=== PATIENT | male | born 1990 | race Caucasian/White ===

== ENCOUNTER 2017-05-12 23:13 | Emergency (ER) | payer OTHER ==
[2017-05-12 23:50] VITALS: RESP 16
[2017-05-12 23:55] LABS: Basophils # (A) 0.1 k/uL (0-0.2); Basophils % (A) 1 %; CH 30.5; CHCM 34.9; Eosinophils # (A) 0.1 k/uL (0-0.7); Eosinophils % (A) 1 %; HCT 52.7 % (39.0-53.0); HGB 17.5 gm/dL (13.0-17.5); Luc # (Auto) 0.13; Luc % (Auto) 1; Lymphocytes # (A) 2.1 k/uL (1.0-4.8); Lymphocytes % (A) 22 %; MCH 29.2 pg (25.0-35.0); MCHC 33.2 g/dL (31.0-37.0); MCV 87.9 fL (80.0-100.0); Mean Platelet Volume 7.8; Monocytes # (A) 0.5 k/uL (0-1.0); Monocytes % (A) 5 %; Neutrophils # (A) 6.8 k/uL (1.3-7.7); Neutrophils % (A) 70 %; RBC 5.99 m/uL (4.30-5.90); RDW 14.9 % (11.5-15.5); WBC 9.7 k/uL (3.8-10.6)
[2017-05-13 00:05] LABS: Anion Gap 9 mmol/L; Blood Urea Nitrogen 20 mg/dL (9-20); Calcium 9.8 mg/dL (8.4-10.2); Carbon Dioxide 23 mmol/L (22-30); Chloride 112 mmol/L (98-107); Glucose 88 mg/dL (74-99); Non-African American GFR(MDRD) >60 (>60 ml/min/1.73 sqM); Potassium 3.6 mmol/L (3.5-5.1); Sodium 144 mmol/L (137-145)
--- NOTE | 2017-05-13 00:27 | XR ---
EXAM: XR Chest, 1 View CLINICAL HISTORY: Reason: chest pain TECHNIQUE: Frontal view of the chest. COMPARISON: No relevant prior studies available. FINDINGS: Lungs: Unremarkable. No consolidation. Pleural space: Unremarkable. No pneumothorax. Heart: Unremarkable. No cardiomegaly. Mediastinum: Unremarkable. Bones/joints: Unremarkable. IMPRESSION: Normal chest x-ray.
--- NOTE | 2017-05-13 01:07 | ED ---
Chest Pain HPI - General Chief Complaint: Chest Pain Stated Complaint: chest pain Time Seen by Provider: 05/12/17 23:31 Source: patient, EMS Mode of arrival: EMS Limitations: no limitations - Related Data Home Medications Medication Instructions Recorded Confirmed No Known Home Medications [No 05/12/17 05/12/17 Known Home Medications] Allergies Allergy/AdvReac Type Severity Reaction Status Date / Time No Known Allergies Allergy Verified 05/12/17 23:31 Review of Systems ROS Statement: Those systems with pertinent positive or pertinent negative responses have been documented in the HPI. ROS Other: All systems not noted in ROS Statement are negative. Past Medical History Past Medical History: No Reported History History of Any Multi-Drug Resistant Organisms: None Reported Past Surgical History: No Surgical Hx Reported Past Psychological History: Schizophrenia Smoking Status: Current every day smoker Past Alcohol Use History: Daily Past Drug Use History: Marijuana General Exam Limitations: no limitations Course Vital Signs 05/12/17 05/12/17 23:18 23:49 Temperature 98 F Pulse Rate 90 76 Respiratory 18 16 Rate Blood Pressure 131/96 123/70 O2 Sat by Pulse 95 95 Oximetry Disposition Clinical Impression: Chest pain Disposition: HOME SELF-CARE Condition: Good Instructions: Chest Pain (ED) Referrals: None,Stated [Primary Care Provider] - 1-2 days
[2017-05-13 01:19] VITALS: BP 120/75; PULSE 67; TEMP 98
== END 2017-05-13 01:17 | disposition home or self-care (01) ==
LOC: EC 23:13
DX: R07.9 Chest pain, unspecified (principal); F17.200 Nicotine dependence, unspecified, uncomplicated
CPT/HCPCS: 36415; 71010; 80048; 84484; 85025; 93005; 99285

== ENCOUNTER 2017-05-13 22:51 | Inpatient (IN) | payer MEDICAID, OTHER ==
--- NOTE | 2017-05-13 23:13 | ED ---
Psych HPI - General Chief Complaint: Psychiatric Symptoms Stated Complaint: Mental Health Time Seen by Provider: 05/13/17 23:00 Source: patient Mode of arrival: ambulatory - History of Present Illness Initial Comments: 26 years old male presents with a suicidal ideation ongoing for a few days he does have a history of schizophrenia, depression, bipolar disorder. He do not have any psychiatrist at this point. There are no he has not been taking his medications since November. Neuromuscular he is more called this morning but [facility] Pan skin the ER was negative he denies any street drugs. He denies any headaches no chest pain or shortness of breath he does admits to suicidal ideation - Related Data Home Medications Medication Instructions Recorded Confirmed No Known Home Medications [No 05/12/17 05/12/17 Known Home Medications] Allergies Allergy/AdvReac Type Severity Reaction Status Date / Time No Known Allergies Allergy Verified 05/13/17 22:55 Review of Systems ROS Statement: Those systems with pertinent positive or pertinent negative responses have been documented in the HPI. ROS Other: All systems not noted in ROS Statement are negative. Past Medical History Past Medical History: No Reported History History of Any Multi-Drug Resistant Organisms: None Reported Past Surgical History: No Surgical Hx Reported Past Psychological History: Schizophrenia Smoking Status: Current every day smoker Past Alcohol Use History: Daily Past Drug Use History: Marijuana General Exam - General Exam Comments Initial Comments: General: The patient is awake and alert, in no distress, and does not appear acutely ill. Skin: Skin is warm and dry and no rashes or lesions are noted. Eye: Pupils are equal, round and reactive to light, extra-ocular movements are intact; there is normal conjunctiva bilaterally. Ears, nose, mouth and throat: There are moist mucous membranes and no oral lesions. Neck: The neck is supple, there is no tenderness or JVD. Cardiovascular: There is a regular rate and rhythm. No murmur, rub or gallop is appreciated. Respiratory: To auscultation bilateral, no wheezing no rhonchi no distress respiratory ramirez noticed Gastrointestinal: Soft, non-distended, non-tender abdomen without masses or organomegaly noted. There is no rebound or guarding present. Bowel sounds are unremarkable. Back: There is no tenderness to palpation in the midline. There is no obvious deformity. Musculoskeletal: Normal ROM, no tenderness, There is no pedal edema. There is no calf tenderness or swelling. No cords were appreciated. Neurological: CN II-XII intact, Cranial nerves III through XII are intact. There are no obvious motor or sensory deficits. Coordination appears grossly intact. Speech is normal. Psychiatric: Cooperative, he admits to suicidal ideation and he wants to kill him self. Limitations: no limitations Course Vital Signs 05/13/17 05/13/17 22:52 23:44 Temperature 97.4 F L Pulse Rate 94 Respiratory 18 14 Rate Blood Pressure 135/83 O2 Sat by Pulse 95 Oximetry Disposition Clinical Impression: Suicidal ideation Disposition: ADMITTED IP TO THIS HOSP Condition: Good
[2017-05-14] MEDS ORDERED: MAG HYDROX/AL HYDROX/SIMETH 30 ML CUP PO PRN (02:08)
[2017-05-14] MEDS ORDERED: ZIPRASIDONE 20 MG VIAL IM PRN (02:08)
[2017-05-14] MEDS ORDERED: ACETAMINOPHEN TAB 325 MG TAB PO PRN (02:08)
[2017-05-14] MEDS ORDERED: MAGNESIUM HYDROXIDE 2,400 MG/10 ML CUP PO PRN (02:08)
[2017-05-14 02:33] LABS: Amorphous Sediment,Urine Occasional /hpf; Appearance,Urine Turbid (Clear); Bacteria,Urine Many /hpf; Bilirubin,Urine Negative (Negative); Glucose,Urine (UA) Negative (Negative); Ketones,Urine Negative (Negative); Leukocyte Esterase,Urine Negative (Negative); Mucus,Urine Moderate /hpf; Nitrite,Urine Negative (Negative); PH, Urine 5.5 (5.0-8.0); Particle Count 50369; Protein,Urine Trace (Negative); Specific Gravity,Urine 1.027 (1.001-1.035); UA Billing (MACRO vs. MICRO) MICRO
[2017-05-14 05:38] VITALS: BMI 26.4
--- NOTE | 2017-05-14 08:15 | P.HPMEDMHU ---
History of Present Illness H&P Date: 05/14/17 Chief Complaint: Suicidal ideation This patient is a 26 years old male with significant history of bipolar disorder and schizophrenia presented to the emergency room with suicidal ideation, admitted to the psych unit for inpatient treatment. records from the emergency room indicated the patient complained of chest pain however patient denies having any chest pain, stated he is here because of his depression as well as schizophrenia. Review of Systems Constitutional: Patient reports no fever, no chills, no weight changes, no change in appetite Eyes: Patient reports no double vision, no visual changes ENT: Patient reports no rhinorrhea, no post nasal drip, no sore throat Cardiovascular: Patient reports no chest pain, no edema, no palpitations, no syncope, no orthopnea, no paroxysmal nocturnal dyspnea. Respiratory: Patient reports no dyspnea, no cough, no wheeze Gastrointestinal: Patient reports no nausea, no vomiting, no constipation, no diarrhea Genitourinary: Patient reports no dysuria, no urinary frequency, no hematuria. Musculoskeletal: Patient reports no unusual joint pain, no joint swelling or weakness. Patient reports no muscular pain. Psychiatric: Patient reports no changes in mood, no sleeping problems. Patient reports no changes in memory. Endocrine: Patient reports no thirst, no polyuria, no cold intolerance, no heat intolerance. Neurological: Patient reports no unusual paresthesias, no seizures, no paresis , no paralysis, no facila droop, no headache. Heme/Lymphatic: Patient reports no easy bruising, no bleeding tendency, no lymphadenopathy. Allergic/ Immunologic: Patient reports no recent allergic reactions or immunologic history. Skin: Patient reports no rashes or unusual lesions. Past Medical History Past Medical History: No Reported History History of Any Multi-Drug Resistant Organisms: None Reported Past Surgical History: No Surgical Hx Reported Past Anesthesia/Blood Transfusion Reactions: No Reported Reaction Past Psychological History: Bipolar, Schizophrenia Smoking Status: Current every day smoker Past Alcohol Use History: Daily Past Drug Use History: Marijuana Medications and Allergies Home Medications Medication Instructions Recorded Confirmed Type No Known Home Medications [No 05/12/17 05/12/17 History Known Home Medications] Allergies Allergy/AdvReac Type Severity Reaction Status Date / Time No Known Allergies Allergy Verified 05/13/17 22:55 Physical Exam Vitals: Vital Signs Temp Pulse Pulse Resp BP BP Pulse Ox 05/14/17 05:09 96.8 F L 67 16 108/79 05/13/17 23:44 14 05/13/17 22:52 97.4 F L 94 18 135/83 95 Intake and Output 05/13/17 05/14/17 05/14/17 22:59 06:59 14:59 Other: Weight 75.296 kg 72.2 kg - Constitutional General appearance: no acute distress - EENT Eyes: PERRLA, fundus normal, dentition normal, normal appearance Ears: bilateral: normal - Neck Neck: no lymphadenopathy, no rigidity, no stridor, no thyromegaly Carotids: negative: upstroke normal Thyroid: bilateral: normal size, negative: nodule - Respiratory Respiratory: bilateral: CTA, negative: rales, rhonchi, wheezing - Cardiovascular Rhythm: regular Heart sounds: normal: S1, S2 Abnormal Heart Sounds: no systolic murmur, no diastolic murmur, no S3 Gallop, no S4 Gallop - Gastrointestinal General gastrointestinal: no distended, normal bowel sounds, no rigid, soft, no tenderness - Integumentary Integumentary: no calor, no flushed, no jaundiced, normal, normal turgor - Neurologic Neurologic: CNII-XII intact - Musculoskeletal Musculoskeletal: gait normal, strength equal bilaterally - Psychiatric Psychiatric: A&O x's 3, appropriate affect Cranial Nerve Examination - Cranial Nerves Cranial Nerve II- Optic: Intact Cranial Nerve III- Oculomotor: Intact Cranial Nerve IV- Trochlear: Intact Cranial Nerve V- Trigeminal: Intact Cranial Nerve - Abducens: Intact Cranial Nerve VII- Facial: Intact Cranial Nerve VIII- Auditory: Intact Cranial Nerve IX- Glossopharyngeal: Intact Cranial Nerve X- Vagus: Intact Cranial Nerve XI- Accessory: Intact Cranial Nerve XII- Hypoglossal: Intact Results Labs: Abnormal Lab Results - Last 24 Hours (Table) 05/14/17 05/14/17 Range/Units 00:38 00:38 Urine Protein Trace H (Negative) Amorphous Sediment Occasional H (None) /hpf Urine Bacteria Many H (None) /hpf Urine Mucus Moderate H (None) /hpf Urine Yeast (Budding) Moderate H (None) /hpf U Marijuana (THC) Screen Detected H (NotDetected) Assessment and Plan (1) Suicidal ideation Narrative/Plan: Patient admitted to psych unit and treatment as per psychiatrY Status: Acute (2) Schizo-affective schizophrenia Narrative/Plan: History of schizophrenia Along with bipolar disorder per Patient, treatment as per psychiatry Status: Acute (3) Nicotine addiction Narrative/Plan: I Counseled him extensively regarding smoking cessation for more than 20 minutes I ordered nicotine gum Per His request Status: Acute Time with Patient: Greater than 30
[2017-05-14] MEDS: NICOTINE POLACRILEX 2 MG GUM BUCCAL PRN ×2 (08:40→10:55)
[2017-05-14] MEDS ORDERED: NICOTINE 21MG/24HR PATCH TRANSDERM SCH (09:00)
[2017-05-14 09:24] LABS: Basophils # (A) 0.1 k/uL (0-0.2); Basophils % (A) 1 %; CH 30.2; CHCM 33.5; Eosinophils # (A) 0.2 k/uL (0-0.7); Eosinophils % (A) 2 %; HCT 56.1 % (39.0-53.0); HDW 2.42; HGB 17.8 gm/dL (13.0-17.5); Luc # (Auto) 0.16; Luc % (Auto) 2; Lymphocytes # (A) 2.5 k/uL (1.0-4.8); Lymphocytes % (A) 35 %; MCH 28.7 pg (25.0-35.0); MCHC 31.7 g/dL (31.0-37.0); MCV 90.5 fL (80.0-100.0); Mean Platelet Volume 7.7; Monocytes # (A) 0.4 k/uL (0-1.0); Monocytes % (A) 6 %; Neutrophils # (A) 3.9 k/uL (1.3-7.7); Neutrophils % (A) 54 %; RDW 14.5 % (11.5-15.5); WBC 7.3 k/uL (3.8-10.6); WBC (Perox) 7.21
[2017-05-14 09:57] LABS: ALT 52 U/L (21-72); AST 45 U/L (17-59); Alkaline Phosphatase 77 U/L (38-126); Anion Gap 11 mmol/L; Blood Urea Nitrogen 17 mg/dL (9-20); Calcium 9.7 mg/dL (8.4-10.2); Carbon Dioxide 27 mmol/L (22-30); Chloride 108 mmol/L (98-107); Glucose 65 mg/dL (74-99); Non-African American GFR(MDRD) >60 (>60 ml/min/1.73 sqM); Sodium 146 mmol/L (137-145); Total Bilirubin 0.6 mg/dL (0.2-1.3); Total Protein 6.4 g/dL (6.3-8.2)
[2017-05-14] MEDS ORDERED: LORazepam 1 MG TAB PO PRN (11:02)
[2017-05-14] MEDS: QUEtiapine 100 MG TAB PO SCH (21:58)
[2017-05-15] MEDS: NICOTINE POLACRILEX 2 MG GUM BUCCAL PRN ×3 (09:09→19:59)
--- NOTE | 2017-05-15 10:22 | HP ---
DATE OF SERVICE: 05/14/2017 IDENTIFYING DATA: This patient is a 26-year-old single male who is admitted to the Mental Health Unit through the Emergency Room with a report of psychosis and suicidal ideation and homicidal thoughts. HISTORY OF PRESENT ILLNESS: The patient states that just yesterday he began experiencing command auditory hallucinations directing self-harm and harm to "anybody who bothered me." He did not have a specified individual or group that he wanted to harm. He states that the auditory hallucinations are not present today and that yesterday sometimes he could understand them and other times, they were "jibberish". He reported suicidal thoughts whenever he experience hallucinations. The patient initially refused to speak with me. He refused to come down to an interview room. With a second attempt this morning, he was willing to answer a limited number of questions in his room. He states he has previously been diagnosed with bipolar disorder, major depressive disorder, anxiety disorder and antisocial personality disorder. He endorses a history of manic episodes with decreased need for sleep for almost one week, increased energy, irritability, racing thoughts and increased goal-directed activity. He endorses a history of major depressive episodes. He states he does not frequency experience auditory or visual hallucinations. He is endorsing no recent visual hallucinations. He is endorsing no specific delusions. PAST PSYCHIATRIC HISTORY: He has had several inpatient admissions. It appears in 2013 he was admitted to either [facility] or [facility]. He has also been on inpatient units in [place] as well. Suicide attempts, he reports having 2 where he overdosed more than 3 years ago. He has been on Seroquel in the past and Neurontin. He is asking to be placed back on those medications as he felt they were helpful. He has also been on Abilify and numerous other psychotropics but does not go in any further detail. He [facility] worked with [facility] past but is not actively open with any provider. 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 ALLERGIES: No known drug allergies. CHEMICAL DEPENDENCY HISTORY: He states that lately he has been drinking daily, consuming 48 ounces of beer. He uses marijuana daily. He has a history of using heroine and methamphetamine but reports he has been clean from them for over one year. FAMILY PSYCHIATRIC AND CHEMICAL DEPENDENCY HISTORY: Unknown. SOCIAL HISTORY: The patient is 26 years old. He is not . He has no children. It appears he is homeless and has been staying with friends on their couch. He has a GED. He did not describe which grade he stopped schooling. No history of service. He has 2 brothers, 2 sisters. He will have some contact with his mother via phone. She resides in [place]. He states that he moved around [facility] numerous times while growing up and states "you'll have to ask my mom why." LEGAL HISTORY: The patient has a history of numerous arrests including home invasion, domestic violence, assault on a public safety police or official, obstruction of justice. He has been incarcerated in nursing home in the past. He states that he is done with probation. ABUSE HISTORY: Unknown. MENTAL STATUS EXAM: The patient is a male, he is lying in bed. He is dressed in layers. He has a foul odor. He is balding and is wearing a sutton. Eye contact is intermittent. He is initially very dismissive and seems agitated with my attempts to ask questions. He agitation does decrease somewhat during the course of the interview although it is brief. Speech is spontaneous, fluent. He can be verbose at times. He endorses suicidal thoughts. He endorses recent auditory command hallucinations. He reports aggressive thoughts to "anyone who bothers me." He does not indicate he wants to harm or kill any specific person or group. Insight and judgment limited. He demonstrates no physical aggressiveness, no abnormal involuntary movements observed. Again, he was only partially cooperative. No cognitive testing could be performed. STRENGTHS: Willingness to receive voluntary treatment. WEAKNESSES: Homelessness, lack of income. Presumed limited support. Intellect below average. IMPRESSION: 1. Bipolar I disorder, most recent depressed with reported psychosis, marijuana use disorder, rule out alcohol use disorder, antisocial personality disorder traits. 2. Homelessness, lack of income, presumed lack of social support. 3. Reported variant of muscular dystrophy. PLAN: The patient has been admitted to the Mental Health Unit. He is here voluntarily. He is already reporting a resolution of his psychosis assuming his report is accurate. We will proceed with using Seroquel as a mood stabilizer for the presumed bipolar disorder. We will monitor for any alcohol withdrawal symptoms. Ativan will be available as needed. The patient is encouraged to participate in the milieu but he states today he will not. Social Work will meet with the patient for routine biopsychosocial evaluation. Internal Medicine will meet with the patient for routine history and physical. We will discuss the possibility of inpatient chemical dependency treatment with him during the course of the hospitalization. We will continue to monitor him for safety. SHIVA
--- NOTE | 2017-05-15 12:43 | P.PN ---
Progress Note - Text Interval History: Patient is a 26-year-old male who is admitted for command auditory hallucinations, suicidal ideation. Patient was seen today and he told me that he was only hearing voices because he had been drinking and was high. He reports no current paranoid ideation. Patient reports a long history of difficulties controlling his temper and getting into fights and states he was in juvenile long term from the age of 14 to the age of 22. He would not discuss the reason for his being placed there at the age of 14. Patient was released in October 2011 and placed in a group home house and into transitional living and then living with his mother. He states since 2012 he has attempted suicide twice with overdoses, has been hospitalized at [facility] on 2 occasions as well as being placed in crisis residential unit in [place] and also being hospitalized at [facility]. He states his time at [facility] in [place] was in 2014. He reports that he at [facility] in 2015 and has been there on numerous occasions since 2012. Patient states that he is most recently been using marijuana in binge drinking for the last 2 weeks about a pint 3-4 beers a day. Patient reports that he has not used any other drugs since 2014. Patient states that he's been in care home for 10 months for home invasion as well as a probation violation and was released 2 weeks ago, and he is currently not on probation. He reports getting into fights on numerous occasions in care home. He states he was given Seroquel in care home only but was cheeking it and only used it when he needed to sleep. Patient states he is not feeling suicidal and is not hearing any voices and has no homicidal thoughts. He reports that he is not paranoid. He states that he has an appointment set up at [facility] for an intake tomorrow May 16 because he would like to obtain counseling to cope with the of his father in October of this year and his paternal grandmother who in December of this year. He reports that he will not use the Seroquel when he is discharged because he does not feel that he needs to have any medication. He had recently been living with a friend that he met while he was in rehab but he does not want to continue living there. Mental Status: Appearance/Attitude: Patient was wearing a hoodie with the christine up over his head, is dressed neatly and made good eye contact and was cooperative. Behavior: Patient did not exhibit any psychomotor agitation or retardation. Speech/Language: Patient's speech was spontaneous and of normal volume and rhythm and he was coherent. Thought Process: Patient was goal-directed and there is no evidence of any circumstantial or tangential thought and no loose associations or flight of ideas. Thought Content: Patient denied any current auditory or visual hallucinations and no paranoid or delusional ideation was elicited. Patient stated that the only time he hears voices as when he is drinking or high on drugs. He states that he is not currently paranoid and the only difficulties he has are his anger and getting into fights. He denied any current suicidal or homicidal ideation Suicidal/Homicidal Ideation: Patient denied any current suicidal or homicidal ideation. Sensorium/Cognition: Patient is alert and oriented to person place and time and his memory is grossly intact. Mood/Affect: patient's mood was euthymic and his affect is slightly blunted. Insight/Judgement: patient's insight and judgment are poor. Assessment: Patient was admitted on a voluntary basis and has been taking Seroquel 100 mg at bedtime which he states has helped him sleeping. Patient states that the auditory hallucinations only occur when he is drinking or high on drugs. Patient denied any auditory hallucinations currently and states he is not feeling paranoid. Patient denied having any suicidal or homicidal ideation currently. Patient states that when he is sober he wants to stop using alcohol and smoking marijuana. Patient states he has no place to live as he does not want to return to live with friends that he had been living with. Plan: Patient will continue on Seroquel 100 mg at bedtime as he has been sleeping and is not reporting any further auditory hallucinations and his mood is stable. Will confirm the patient has an intake appointment on May [address] [facility] and consider discharging patient tomorrow with referral to [facility] for outpatient therapy as well as alcohol and substance use treatment.
[2017-05-15 14:58] LABS: Appearance,Urine Clear (Clear); Bilirubin,Urine Negative (Negative); Glucose,Urine (UA) Negative (Negative); Ketones,Urine Negative (Negative); Leukocyte Esterase,Urine Negative (Negative); Nitrite,Urine Negative (Negative); PH, Urine 5.5 (5.0-8.0); Protein,Urine Negative (Negative); Specific Gravity,Urine 1.014 (1.001-1.035); UA Billing (MACRO vs. MICRO) CHEM; Urobilinogen,Urine <2.0 mg/dL (<2.0)
[2017-05-15] MEDS: QUEtiapine 100 MG TAB PO SCH (21:55)
[2017-05-16 07:16] VITALS: BP 123/68; PULSE 52; RESP 16; TEMP 97.7
[2017-05-16] MEDS: NICOTINE POLACRILEX 2 MG GUM BUCCAL PRN (09:26)
--- NOTE | 2017-05-16 11:37 | P.DS ---
Providers Date of admission: 05/14/17 01:05 Expected date of discharge: 05/16/17 Attending physician: Carmen Saenz MD Consults: 05/14/17 02:08 Consult Physician Routine Consulting Provider: Joselo Hartmann Consult Reason/Comments: H&P, with medical follow up Do you want consulting provider notified?: Already Contacted Primary care physician: Stated None Hospital Course: Discharge Diagnoses: Substance induced bipolar and related disorder, alcohol use disorder, marijuana use disorder, antisocial personality disorder Reason for Admission: Patient is a 26-year-old male who presented to the emergency room reporting auditory hallucinations that were command telling him to harm himself and anybody who bothered him. Patient has a history of several inpatient admissions and several suicide attempts in the past. Patient reports that he had just been released from [facility] ago, he states he began using marijuana and began to binge drinking. Patient states that when he drinks and uses drugs and his high he has suicidal ideation and auditory hallucinations. Patient had been taking Seroquel and Neurontin in the past and reported that these were helpful to him. Patient had been living with friends after his release from [facility]. Hospital Course: Patient was admitted on a voluntary basis, routine laboratory studies were ordered, patient was placed on routine observation, medical consult was obtained, patient was ordered group and activity therapy. Patient was restarted on his Seroquel at 100 mg at bedtime. Patient was also observed for any evidence of withdrawal from alcohol. Patient did attend some groups and activities. Patient was begun on Seroquel 100 mg and he then reported no further suicidal ideation, auditory hallucinations or thoughts to hurt anyone else. Patient reported that he was sleeping well and eating well. He stated he was not feeling depressed and reported that his symptoms were result of his using alcohol and drugs and getting high. Patient remained guarded about informing staff about where he was returning to live or with whom he was living. Patient stated he had set up an appointment for an intake at [facility] prior to his admission and he wished to keep that. Patient reported he was not irritable, reported no psychotic symptomatology and no suicidal or homicidal ideation and was ready for discharge. Patient states he was sleeping and eating well. Discharge Mental Status:Appearance/Attitude: Patient was appropriately dressed and groomed, made good eye contact and was superficially cooperative. Behavior: Patient did not display any psychomotor agitation or retardation. Speech/Language: Patient's speech was spontaneous and of normal volume and rhythm and he was coherent. Thought Process: Patient was goal-directed, no evidence of circumstantial or tangential thought and no flight of ideas or loose associations were elicited. Thought Content: Patient denied any auditory or visual hallucinations and no delusions or paranoid ideation were elicited. Patient reported that he was sleeping and eating well and had not been feeling as irritable as he was prior to admission. Patient states that the auditory hallucinations and suicidal thoughts were due to his using alcohol and drugs prior to his admission. Patient was not forthcoming in stating where or who he was going to live with post discharge. Suicidal/Homicidal Ideation: Patient denied any current suicidal or homicidal ideation. Sensorium/Cognition: Patient was alert and oriented to person, place, and time and his memory is grossly intact. Mood/Affect: Patient's mood was stable and his affect was appropriate Insight/Judgement: Patient's insight and judgment are fair. Laboratory Last Values WBC 7.3 k/uL (3.8-10.6) 05/14/17 08:45 RBC 6.20 m/uL (4.30-5.90) H 05/14/17 08:45 Hgb 17.8 gm/dL (13.0-17.5) H 05/14/17 08:45 Hct 56.1 % (39.0-53.0) H 05/14/17 08:45 MCV 90.5 fL (80.0-100.0) 05/14/17 08:45 MCH 28.7 pg (25.0-35.0) 05/14/17 08:45 MCHC 31.7 g/dL (31.0-37.0) 05/14/17 08:45 RDW 14.5 % (11.5-15.5) 05/14/17 08:45 Plt Count 287 k/uL (150-450) 05/14/17 08:45 Neutrophils % 54 % 05/14/17 08:45 Lymphocytes % 35 % 05/14/17 08:45 Monocytes % 6 % 05/14/17 08:45 Eosinophils % 2 % 05/14/17 08:45 Basophils % 1 % 05/14/17 08:45 Neutrophils # 3.9 k/uL (1.3-7.7) 05/14/17 08:45 Lymphocytes # 2.5 k/uL (1.0-4.8) 05/14/17 08:45 Monocytes # 0.4 k/uL (0-1.0) 05/14/17 08:45 Eosinophils # 0.2 k/uL (0-0.7) 05/14/17 08:45 Basophils # 0.1 k/uL (0-0.2) 05/14/17 08:45 Sodium 146 mmol/L (137-145) H 05/14/17 08:45 Potassium 4.0 mmol/L (3.5-5.1) 05/14/17 08:45 Chloride 108 mmol/L (98-107) H 05/14/17 08:45 Carbon Dioxide 27 mmol/L (22-30) 05/14/17 08:45 Anion Gap 11 mmol/L 05/14/17 08:45 BUN 17 mg/dL (9-20) 05/14/17 08:45 Creatinine 0.95 mg/dL (0.66-1.25) 05/14/17 08:45 Est GFR (MDRD) Af Amer >60 (>60 ml/min/1.73 sqM) 05/14/17 08:45 Est GFR (MDRD) Non-Af >60 (>60 ml/min/1.73 sqM) 05/14/17 08:45 Glucose 65 mg/dL (74-99) L 05/14/17 08:45 Calcium 9.7 mg/dL (8.4-10.2) 05/14/17 08:45 Total Bilirubin 0.6 mg/dL (0.2-1.3) 05/14/17 08:45 AST 45 U/L (17-59) 05/14/17 08:45 ALT 52 U/L (21-72) 05/14/17 08:45 Alkaline Phosphatase 77 U/L (38-126) 05/14/17 08:45 Total Protein 6.4 g/dL (6.3-8.2) 05/14/17 08:45 Albumin 4.2 g/dL (3.5-5.0) 05/14/17 08:45 TSH 1.770 mIU/L (0.465-4.680) 05/14/17 08:45 Urine Color Yellow 05/15/17 14:51 Urine Appearance Clear (Clear) 05/15/17 14:51 Urine pH 5.5 (5.0-8.0) 05/15/17 14:51 Ur Specific [place] 1.014 (1.001-1.035) 05/15/17 14:51 Urine Protein Negative (Negative) 05/15/17 14:51 Urine Glucose (UA) Negative (Negative) 05/15/17 14:51 Urine Ketones Negative (Negative) 05/15/17 14:51 Urine Blood Negative (Negative) 05/15/17 14:51 Urine Nitrite Negative (Negative) 05/15/17 14:51 Urine Bilirubin Negative (Negative) 05/15/17 14:51 Urine Urobilinogen <2.0 mg/dL (<2.0) 05/15/17 14:51 Ur Leukocyte Esterase Negative (Negative) 05/15/17 14:51 Amorphous Sediment Occasional /hpf (None) H 05/14/17 00:38 Urine Bacteria Many /hpf (None) H 05/14/17 00:38 Urine Mucus Moderate /hpf (None) H 05/14/17 00:38 Urine Yeast (Budding) Moderate /hpf (None) H 05/14/17 00:38 Urine Opiates Screen Not Detected (NotDetected) 05/14/17 00:38 Ur Oxycodone Screen Not Detected (NotDetected) 05/14/17 00:38 Urine Methadone Screen Not Detected (NotDetected) 05/14/17 00:38 Ur Propoxyphene Screen Not Detected (NotDetected) 05/14/17 00:38 Ur Barbiturates Screen Not Detected (NotDetected) 05/14/17 00:38 U Tricyclic Antidepress Not Detected (NotDetected) 05/14/17 00:38 Ur Phencyclidine Scrn Not Detected (NotDetected) 05/14/17 00:38 Ur Amphetamines Screen Not Detected (NotDetected) 05/14/17 00:38 U Methamphetamines Scrn Not Detected (NotDetected) 05/14/17 00:38 U Benzodiazepines Scrn Not Detected (NotDetected) 05/14/17 00:38 Urine Cocaine Screen Not Detected (NotDetected) 05/14/17 00:38 U Marijuana (THC) Screen Detected (NotDetected) H 05/14/17 00:38 Risk Assessment: Patient's risk is is moderate for self-harm/violence towards others due to his history of prior aggression, alcohol and substance use Discharge Plan: Patient will be discharged and will keep his 2 PM appointment at [facility] for an intake today. Patient will continue on Seroquel 100 mg at bedtime and was given a prescription for this however patient states that he will use it when he feels he needs it. Patient was encouraged to remain sober and avoid any alcohol or drugs. Patient continued to refuse to tell us with whom he was going to go live and where he was going to go live stating he did not want anyone else involved with his treatment. Patient Condition at Discharge: Stable Plan - Discharge Summary New Discharge Prescriptions: New QUEtiapine [SEROquel] 100 mg PO HS #14 tab Discharge Medication List QUEtiapine [SEROquel] 100 mg PO HS #14 tab 05/16/17 [Rx] Follow up Appointment(s)/Referral(s): [facility] [Outside] - 1 Week None,Stated [Primary Care Provider] - 05/16/17 2:00 pm ([facility]) Discharge Disposition: HOME SELF-CARE
== END 2017-05-16 14:08 | disposition home or self-care (01) | DRG 885 ==
LOC: EC 22:51 → 3MHU 05-14 01:05
PROVIDERS: ADMIT Psychiatry & Neurology Psychiatry; ATTEND Psychiatry & Neurology Psychiatry
DX: F31.9 Bipolar disorder, unspecified (principal); G71.0 Muscular dystrophy; R45.851 Suicidal ideations; F20.9 Schizophrenia, unspecified; F17.200 Nicotine dependence, unspecified, uncomplicated; F12.90 Cannabis use, unspecified, uncomplicated; F60.2 Antisocial personality disorder; Z59.0 Homelessness; Z79.899 Other long term (current) drug therapy; Z59.6 Low income; Z91.5 Personal history of self-harm; F10.10 Alcohol abuse, uncomplicated
CPT/HCPCS: 80053; 80306; 81001; 81003; 82075; 84443; 85025; 87086; 87491; 87591

== ENCOUNTER 2018-08-27 13:53 | Emergency (ER) | payer OTHER ==
[2018-08-27 14:08] VITALS: BP 114/82; PULSE 70; RESP 18; TEMP 98.4
--- NOTE | 2018-08-27 15:47 | ED ---
General Adult HPI - General Chief complaint: Nausea/Vomiting/Diarrhea Stated complaint: Jaw pain/cold Time Seen by Provider: 08/27/18 15:35 Source: patient, RN notes reviewed Mode of arrival: ambulatory Limitations: no limitations - History of Present Illness Initial comments: Patient's a 28-year-old male presents to the emergency room today with a chief complaint of sinus congestion. Patient admits that over the last 3 days she's had increased sinus drainage and congestion. She also admits that he's had some nausea vomiting. He states this was yesterday and has not had any episodes today. Does admit that he had a few episodes of diarrhea. States he believes it may have been the chicken that he cooked. Patient does admit that the symptoms of nausea vomiting diarrhea have improved. He states he was unable to work last night. States work on him to have a work note and his his reason for coming here to the emergency room today. He does note he still having sinus congestion. Patient denies any other complaints. Patient denies any recent fever, chills, shortness of breath, chest pain, back pain, abdominal pain, numbness or tingling, dysuria or hematuria, constipation, headaches or visual changes, or any other complaints. - Related Data Previous Rx's Medication Instructions Recorded QUEtiapine [SEROquel] 100 mg PO HS #14 tab 05/16/17 Fluticasone Propionate [Flonase 1 - 2 spray EA NOSTRIL DAILY 5 08/27/18 Allergy Relief] Days ml Allergies Allergy/AdvReac Type Severity Reaction Status Date / Time No Known Allergies Allergy Verified 08/27/18 14:06 Review of Systems ROS Statement: Those systems with pertinent positive or pertinent negative responses have been documented in the HPI. ROS Other: All systems not noted in ROS Statement are negative. Past Medical History Past Medical History: No Reported History History of Any Multi-Drug Resistant Organisms: None Reported Past Surgical History: No Surgical Hx Reported Past Anesthesia/Blood Transfusion Reactions: No Reported Reaction Past Psychological History: Bipolar, Schizophrenia Smoking Status: Current every day smoker Past Alcohol Use History: Daily Past Drug Use History: Marijuana General Exam - General Exam Comments Initial Comments: General: The patient is awake and alert, in no distress, and does not appear acutely ill. Eye: Pupils are equal, round and reactive to light, extra-ocular movements are intact. No nystagmus. There is normal conjunctiva bilaterally. No signs of icterus. Ears, nose, mouth and throat: There are moist mucous membranes and no oral lesions. She does have tenderness over the maxillary sinus Neck: The neck is supple, there is no tenderness or JVD. Cardiovascular: There is a regular rate and rhythm. No murmur, rub or gallop is appreciated. Respiratory: Lungs are clear to auscultation, respirations are non-labored, breath sounds are equal. No wheezes, stridor, rales, or rhonchi. Gastrointestinal: Soft, non-distended, non-tender abdomen without masses or organomegaly noted. There is no rebound or guarding present. No CVA tenderness. Musculoskeletal: Normal ROM, no tenderness. Neurological: A&O x 3. CN II-XII intact, There are no obvious motor or sensory deficits. Coordination appears grossly intact. Speech is normal. Skin: Skin is warm and dry and no rashes or lesions are noted. Psychiatric: Cooperative, appropriate mood & affect, normal judgment. Limitations: no limitations Course Vital Signs 08/27/18 14:04 Temperature 98.4 F Pulse Rate 70 Respiratory 18 Rate Blood Pressure 114/82 O2 Sat by Pulse 100 Oximetry Medical Decision Making - Medical Decision Making Patient states his reason for coming here to the emergency room because he needed a work note. Patient will be treated for sinus infection with Flonase and ibuprofen. Patient does admit that his symptoms of nausea vomiting and diarrhea have improved has not had any episodes today and believes this is from chicken he cooked at home. Disposition Clinical Impression: Acute sinusitis, Nausea, vomiting and diarrhea Disposition: HOME SELF-CARE Condition: Good Instructions: Acute Nausea and Vomiting (ED) Additional Instructions: Please use medication as discussed. Please follow-up with family doctor in the next 2 days of symptoms have not improved. Please return to emergency room if the symptoms increase or worsen or for any other concerns. Prescriptions: Fluticasone Propionate [Flonase Allergy Relief] 1 - 2 spray EA NOSTRIL DAILY 5 Days ml Is patient prescribed a controlled substance at d/c from ED?: No Referrals: None,Stated [Primary Care Provider] - 1-2 days Time of Disposition: 15:47
== END 2018-08-27 16:04 | disposition home or self-care (01) ==
LOC: EC 13:53
DX: J01.90 Acute sinusitis, unspecified (principal); R11.2 Nausea with vomiting, unspecified; R19.7 Diarrhea, unspecified; F17.200 Nicotine dependence, unspecified, uncomplicated
CPT/HCPCS: 99283

== ENCOUNTER 2020-01-18 21:58 | Inpatient (IN) | payer MEDICAID, OTHER ==
--- NOTE | 2020-01-18 22:55 | ED ---
Psych HPI - General Source: patient Mode of arrival: EMS <Suzette Salgado - Last Filed: 01/18/20 22:45> <Elda Nicholson - Last Filed: 01/20/20 23:44> - General Chief Complaint: Psychiatric Symptoms Stated Complaint: Mental Health Time Seen by Provider: 01/18/20 21:59 - History of Present Illness Initial Comments: 29-year-old male patient presents to the emergency department today for evaluation of hallucinations, nightmares, and suicidal ideation. Patient states symptoms have been increasing over the last 2-3 days. States he is out of his medication due to the recent COVID-19 pandemic. Patient denies any active plan to take his life but has had thoughts and feels like he would be better off . He denies any alcohol use. States he does use marijuana. Patient denies any recent rash, fever, chills, cough, shortness of breath, chest pain, abdominal pain, nausea, vomiting, diarrhea, constipation, back pain, numbness, tingling, dizziness, weakness, hematuria, dysuria, urinary urgency, urinary frequency, headache, visual changes, or any other complaints. (Suzette Salgado) - Related Data Home Medications Medication Instructions Recorded Confirmed Gabapentin [Neurontin] 400 mg PO TID 08/27/18 01/18/20 Previous Rx's Medication Instructions Recorded Fluticasone Propionate [Flonase 1 - 2 spray EA NOSTRIL DAILY 5 08/27/18 Allergy Relief] Days ml Allergies Allergy/AdvReac Type Severity Reaction Status Date / Time No Known Allergies Allergy Verified 01/18/20 23:54 Review of Systems ROS Other: All systems not noted in ROS Statement are negative. <Suzette Salgado - Last Filed: 01/18/20 22:45> ROS Other: All systems not noted in ROS Statement are negative. <Elda Nicholson - Last Filed: 01/20/20 23:44> ROS Statement: Those systems with pertinent positive or pertinent negative responses have been documented in the HPI. Past Medical History Past Medical History: No Reported History History of Any Multi-Drug Resistant Organisms: None Reported Past Surgical History: No Surgical Hx Reported Past Anesthesia/Blood Transfusion Reactions: No Reported Reaction Past Psychological History: Bipolar, Schizophrenia Smoking Status: Current every day smoker Past Alcohol Use History: Heavy Past Drug Use History: Marijuana <Suzette Salgado - Last Filed: 01/18/20 22:45> General Exam General appearance: alert, in no apparent distress, other (Physical well- developed, well-nourished adult male patient in no acute distress. Vital signs upon presentation are temperature 97.5F, pulse 102, respirations 18, blood pressure 134/92, pulse ox 96% on room air.) ENT exam: Present: normal exam, normal oropharynx, mucous membranes moist Respiratory exam: Present: normal lung sounds bilaterally. Absent: respiratory distress, wheezes, rales, rhonchi, stridor Cardiovascular Exam: Present: regular rate, normal rhythm, normal heart sounds. Absent: systolic murmur, diastolic murmur, rubs, gallop, clicks GI/Abdominal exam: Present: soft, normal bowel sounds. Absent: distended, tenderness, guarding, rebound, rigid Neurological exam: Present: alert, oriented X3, CN II-XII intact Psychiatric exam: Present: normal affect, normal mood Skin exam: Present: warm, dry, intact, normal color. Absent: rash <Suzette Salgado - Last Filed: 01/18/20 22:45> Course Vital Signs 01/18/20 22:27 Temperature 97.5 F L Pulse Rate 102 H Respiratory 18 Rate Blood Pressure 134/92 O2 Sat by Pulse 96 Oximetry Medical Decision Making <Suzette Salgado - Last Filed: 01/18/20 22:45> - Lab Data Result diagrams: 01/19/20 06:50 01/19/20 06:50 <Elda Nicholson - Last Filed: 01/20/20 23:44> - Medical Decision Making 29-year-old male patient presented to the emergency department today for evaluation of suicidal ideation, hallucinations, night terrors. Patient was seen and evaluated by the emergency psychiatric nurse and will be transferred to the mental health unit for further evaluation. (Suzette Salgado) I was available for consultation in the emergency department. The history and physical exam were done by the midlevel provider. I was consulted for this patients care. I reviewed the case with the midlevel provider and based on their presentation of the patient, I agree with the assessment, medical decision making and plan of care as documented. Chart was dictated using [employer] dictation software. Attempts were made to correct any dictation errors however some typographical errors may persist. Patient was seen during a national state of emergency due to the Covid-19 pandemic. (Elda Nicholson) Disposition - Out of Hospital Transfer - Req. Specs Out of Hospital Transfer - Requested Specifics: [facility] <Suzette Salgado - Last Filed: 01/18/20 22:45> <Elda Nicholson - Last Filed: 01/20/20 23:44> Clinical Impression: Hallucinations, Suicidal ideation Disposition: TRANSFER TO PSYCH HOSP/UNIT Condition: Serious
[2020-01-18] MEDS ORDERED: LORazepam 1 MG TAB PO PRN (22:59)
[2020-01-18] MEDS ORDERED: MAG HYDROX/AL HYDROX/SIMETH 30 ML CUP PO PRN (22:59)
[2020-01-18] MEDS ORDERED: MAGNESIUM HYDROXIDE 2,400 MG/10 ML CUP PO PRN (22:59)
[2020-01-18] MEDS ORDERED: ZIPRASIDONE 20 MG VIAL IM PRN (22:59)
--- NOTE | 2020-01-19 00:55 | P.MDCNMH ---
History of Present Illness H&P Date: 01/18/20 Chief Complaint: medical evaluation 29 year old male with bipolar disorder, manic depression. patient comes in due to auditory hallucinations. he admits to not taking his medications, due to losing his insurance and could not get his medications refilled. he started hearing voices, which is bothering him , but denies any homicidal or suicidal ideation however, he feels that he is better off . otherwise he denies any medical concerns at this time. denies any fever, chills, chest pain, SOB, abd pain , nausea vomiting, diarrhea, GI bleeding, or focal neuro deficits. Review of Systems Pertinent positives as noted in HPI. All other systems were reviewed and are negative Past Medical History Past Medical History: No Reported History History of Any Multi-Drug Resistant Organisms: None Reported Past Surgical History: No Surgical Hx Reported Past Anesthesia/Blood Transfusion Reactions: No Reported Reaction Past Psychological History: Bipolar, Schizoaffective Disorder Smoking Status: Current every day smoker Past Alcohol Use History: Heavy Past Drug Use History: Marijuana - Past Family History family Family Medical History: No Reported History Medications and Allergies Home Medications Medication Instructions Recorded Confirmed Type Fluticasone Propionate [Flonase 1 - 2 spray EA NOSTRIL DAILY 5 08/27/18 Rx Allergy Relief] Days ml Gabapentin [Neurontin] 400 mg PO TID 08/27/18 01/18/20 History Allergies Allergy/AdvReac Type Severity Reaction Status Date / Time No Known Allergies Allergy Verified 01/18/20 23:54 Physical Exam Vitals: Vital Signs Temp Pulse Pulse Resp BP BP Pulse Ox 01/18/20 23:27 98.0 F 90 18 122/82 94 L 01/18/20 22:27 97.5 F L 102 H 18 134/92 96 Intake and Output 01/18/20 01/18/20 01/19/20 14:59 22:59 06:59 Other: Weight 90.718 kg 81.873 kg Constitutional: No acute distress, conversant, pleasant Eyes: Anicteric sclerae, moist conjunctiva, no lid-lag Pupils equal round reactive to light ENMT: NC/AT Oropharynx clear, no erythema, or exudates Neck: Supple, FROM, no masses, or JVD No carotid bruits No thyromegaly Lungs: Clear to auscultation Clear to percussion Normal respiratory effort, no accessory muscle use Cardiovascular: Heart regular in rate and rhythm, No murmurs, gallops, or rubs No peripheral edema Abdominal: Soft Nontender, no guarding, rebound or rigidity Abdomen moving with respiration Normoactive bowel sounds No hepatomegaly, No splenomegaly No palpable mass No abdominal wall hernia noted Skin: Normal temperature, tone, texture, turgor No induration No subcutaneous nodules No rash, lesions No ulcers Extremities: No digital cyanosis No clubbing Pedal pulses intact and symmetrical Radial pulses intact and symmetrical No calf tenderness Psychiatric: Alert and oriented to person, place and time depressed affect fair judgment Neuro Muscles Strength 5/5 in all 4 extremities Sensation to light touch grossly present throughout Cranial nerves II-XII grossly intact No focal sensory deficits Lymphatics: no palpable cervical or supraclavicular , or inguinal lymph nodes Cranial Nerve Examination - Cranial Nerves Cranial Nerve II- Optic: Intact Cranial Nerve III- Oculomotor: Intact Cranial Nerve IV- Trochlear: Intact Cranial Nerve V- Trigeminal: Intact Cranial Nerve - Abducens: Intact Cranial Nerve VII- Facial: Intact Cranial Nerve VIII- Auditory: Intact Cranial Nerve IX- Glossopharyngeal: Intact Cranial Nerve X- Vagus: Intact Cranial Nerve XI- Accessory: Intact Cranial Nerve XII- Hypoglossal: Intact Assessment and Plan Assessment: 29 year old male with bipolar disorder, manic depression , borderline personality , denies any medical history otherwise. medicine consulted for medical evaluation auditory hallucinations bipolar disorder, borderline personality management per psych tobacco smoking nicotine replacement therapy polysubstance abuse counseled to quit drug of abuse low risk for DVT patient ambulatory Thank you for allowing us to participate in the care of this patient. We will follow peripherally. Do not hesitate to contact us with questions. Someone can be reached from the [facility] hospitalist group at all hours of the day at [phone].
[2020-01-19 07:05] LABS: Basophils # (A) 0.1 k/uL (0-0.2); Basophils % (A) 1 %; Eosinophils # (A) 0.2 k/uL (0-0.7); Eosinophils % (A) 2 %; HCT 51.9 % (39.0-53.0); HGB 16.8 gm/dL (13.0-17.5); Lymphocytes # (A) 2.7 k/uL (1.0-4.8); Lymphocytes % (A) 30 %; MCH 28.6 pg (25.0-35.0); MCHC 32.4 g/dL (31.0-37.0); MCV 88.6 fL (80.0-100.0); Monocytes # (A) 0.4 k/uL (0-1.0); Monocytes % (A) 5 %; Neutrophils # (A) 5.4 k/uL (1.3-7.7); Neutrophils % (A) 61 %; Platelet Count 239 k/uL (150-450); RBC 5.86 m/uL (4.30-5.90); RDW 13.2 % (11.5-15.5); WBC 8.9 k/uL (3.8-10.6)
[2020-01-19 07:16] LABS: ALT 67 U/L (4-49); AST 48 U/L (17-59); African American GFR (CKD) >90 (>60 ml/min/1.73 sqM); Albumin 4.2 g/dL (3.5-5.0); Alkaline Phosphatase 82 U/L (38-126); Anion Gap 6 mmol/L; Blood Urea Nitrogen 21 mg/dL (9-20); Calcium 9.8 mg/dL (8.4-10.2); Carbon Dioxide 28 mmol/L (22-30); Chloride 108 mmol/L (98-107); Cholesterol 200 mg/dL (<200); Glucose 94 mg/dL (74-99); HDL Cholesterol 33 mg/dL (40-60); LDL Cholesterol,Calculated 116 mg/dL (0-99); Non-African American GFR(CKD) >90 (>60 ml/min/1.73 sqM); Potassium 4.9 mmol/L (3.5-5.1); Sodium 142 mmol/L (137-145); Total Bilirubin 0.8 mg/dL (0.2-1.3); Total Protein 6.7 g/dL (6.3-8.2); Triglycerides 256 mg/dL (<150)
[2020-01-19] MEDS ORDERED: NICOTINE 14MG/24HR PATCH TRANSDERM SCH (09:00)
[2020-01-19] MEDS ORDERED: INFLUENZA VACCINE (6 MOS+) 60 MCG/0.5 ML SYRINGE IM ONE (09:00)
[2020-01-19] MEDS ORDERED: PNEUMOCOCCAL VACC-PNEUMOVAX 23 25 MCG/0.5 ML VIAL IM ONE (09:00)
[2020-01-19] MEDS: GABAPENTIN 400 MG CAP PO SCH ×3 (09:54→20:42)
[2020-01-19 10:37] VITALS: BMI 29.1
--- NOTE | 2020-01-19 15:54 | HP ---
HISTORY AND PHYSICAL IDENTIFYING DATA: The patient is a 29-year-old male. He lives with his girlfriend. He was referred to the ED for further evaluation. CHIEF COMPLAINT: The patient was having increasing problems with hallucinations, night terrors and suicidal thinking over the last several days. He says he has been depressed for about a week. HISTORY OF PRESENTING ILLNESS: The patient was the primary source of information. He did not provide many details. He notes a psychiatric hospitalization at that this facility 05/14/2017. At that time, he was experiencing command auditory hallucinations, directing self-harm and "harm to anybody who bothered me." I refer the reader to Dr. Lindquist's admission note of 05/14/2017 for details. As such, Dr. Lindquist indicated a prior diagnosis of bipolar disorder, major depression, anxiety disorder, and antisocial personality disorder. He also stated the patient had manic episodes with decreased need for sleep, increased energy, racing thoughts, and other manic symptoms. At that time, no psychotic symptoms were identified. When I reviewed issues with the patient, he was not able to identify any clear precipitants that may be setting off depression or his other issues. He was vague about what actually he was experiencing in regard to auditory hallucinations. He acknowledged having paranoid feelings, though he again did not provide details on that. He notes that sleep has been up and down. Appetite is fair. He has a loss of motivation energy and interest. He was unclear about whether he has experienced any posttraumatic issues. He does not clearly identify panic symptoms. He acknowledges some substance abuse issues, namely marijuana. Noted that when he was discharged from this facility on 05/16/2017, discharge medication included Seroquel 100 mg at bedtime as his only psychotropic medication. The patient said that he has had followup with [facility] and does have regular contacts. He said that through mental health, he was taken off Seroquel and started on Neurontin 400 mg 3 times a day. He notes that a few months ago he lost his health insurance and was not able to continue with Neurontin. He has made efforts to reconnect with [facility] because the virus situation. He has not been able to get restarted on medication. He believes that Neurontin has been a successful medication for him in terms of his psychiatric complaints. He is admitted for further evaluation. SUBSTANCE USE HISTORY: Patient states that he smokes marijuana on a regular basis and has the intention of continuing to use marijuana. He says he occasionally uses alcohol, though not in an abusive way. He notes that he did use some cocaine Th night, though does not engage in cocaine use on any regular basis. FAMILY / SOCIAL HISTORY: The patient lives with his girlfriend, though he states that at the present moment, they have had some disagreements. He did not provide any details. He has a GED. 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 He has been incarcerated in the past. He says that currently he has been working at a local [employer], though has been laid off due to current virus situation. PHYSICAL EXAM: As per medical consultation. MENTAL STATUS EXAM: Patient gave fair eye contact. He was somewhat restless. He answered questions with brief responses. His thoughts were clear. He did not say a lot. He was not spontaneous or interactive. His affect was blunted. His mood reserved. He seems somewhat down and moderately distressed. It was difficult to assess for thought disorder, though the patient did say that he is experiencing hallucinations, though he did not provide details. He did not make clear any thoughts of harm to self or others. On cognitive exam, he was oriented x3 and alert. He did not make an effort to answer formal cognitive questions though appeared to have intact recent and remote memory, attention and focus. Insight was uncertain. Judgment uncertain fund of knowledge average. DIAGNOSES: 1. Bipolar 1 disorder by history with recent episode depressed with psychotic features. 2. Marijuana use disorder. RECOMMENDATIONS: Patient will be admitted for comprehensive medical psychiatric and psychosocial evaluation . We will engage the patient in individual and group therapeutic activities. I had an extensive discussion with the patient regarding intervention options. At this point I will restart the patient on Neurontin 400 mg 3 times a day, which he says has been successful for him in his work with [facility]. We have very limited information regarding psychosocial stressors. When I talked to the patient about possibly having a family meeting or contacts with the patient and his girlfriend, he said at this point, "the 2 of us are not talking." We will coordinate with [facility] for further treatment and discharge planning issues. We will focus on stabilization and discharge planning. MMODL / IJN: [id number] /
[2020-01-19] MEDS: NICOTINE POLACRILEX 2 MG GUM BUCCAL PRN ×2 (16:33→20:42)
[2020-01-20] MEDS: ACETAMINOPHEN TAB 325 MG TAB PO PRN ×3 (00:22→21:07)
[2020-01-20] MEDS: GABAPENTIN 400 MG CAP PO SCH (08:34)
[2020-01-20] MEDS: NICOTINE POLACRILEX 2 MG GUM BUCCAL PRN ×2 (10:33→14:30)
[2020-01-20 10:50] LABS: Hemoglobin A1C 5.2 % (4.0-6.0)
--- NOTE | 2020-01-20 11:04 | P.PN ---
Progress Note - Text Interval history: The patient is found in the hallway he follows me to an interview room. He indicates he was admitted to the mental health unit for suicidal ideation and also experiencing auditory and visual hallucinations. He states that he'll experience auditory hallucinations directing harm to others and sometimes to himself. He reports experiencing visual hallucinations. He states that the Neurontin has been helpful for mood stabilization. He states he will not go back on Seroquel for his hallucinations as it is too sedating. We discussed alternatives to Seroquel for symptoms of psychosis. He indicates he slept last night with use of Ativan. He has been eating. He did not attend groups this morning. Mental status exam: The patient is a shorter statured male appearing older than his stated age. He is balding he is wearing a long sutton he is dressed in a hooded sweatshirt and his own clothing. Eye contact is appropriate speech is fluent spontaneous he is fairly directing conversation he frequently uses profanity during the conversation. He can be demanding at times. He demonstrates no verbal or physical aggressiveness. He reports feeling safe here in the mental health unit in terms of suicidal ideation he reports no thoughts of harming others at this time. He is endorsing no specific delusions. Insight and judgment limited. Intellect is estimated to be below average. He demonstrates no repetitive involuntary movements. Plan: The patient will continue on the Neurontin we will increase this to 600 mg 3 times daily for mood stabilization and to assist with anxiety we will initiate Geodon 40 mg at bedtime to begin to address reported symptoms of psychosis. He indicates that he is willing to attend inpatient chemical dependency treatment at [facility] but he is under the belief that they will not let him return. We will verify this. Vital signs reviewed they're within normal limits. He is instructed to attend more groups and participate more fully in the milieu. At this time he requires continued psychiatric hospitalization.
[2020-01-20] MEDS: GABAPENTIN 300 MG CAP PO SCH ×2 (16:46→20:44)
[2020-01-20] MEDS: ZIPRASIDONE 40 MG CAP PO SCH (20:44)
[2020-01-21] MEDS: GABAPENTIN 300 MG CAP PO SCH ×3 (07:39→21:11)
[2020-01-21] MEDS: NICOTINE POLACRILEX 2 MG GUM BUCCAL PRN ×2 (08:55→13:41)
--- NOTE | 2020-01-21 11:20 | P.PN ---
Progress Note - Text Interval history: The patient is found in his room sleeping he is verbally arousable he indicates that his mood is fine today he has no questions or concerns regarding his medication. He states he's been tolerating the Neurontin and Geodon without side effects so far. He did call for screening for inpatient chemical dependency treatment he initially felt that he needed more time here but today after discussing his care he is agreeable to going to inpatient rehab tomorrow if it is available. He states that he is feeling safe he is reporting no suicidal or homicidal thoughts. He is endorsing no hallucinations. Mental status exam: The patient is a shorter statured male appearing older than his stated age he is balding he wears a long sutton he is dressed the same clothing yesterday, he has visible tattoos on his upper extremities. Eye contact is appropriate speech is fluent and spontaneous nonpressured he demonst rates no tangential thinking loose associations or flight of ideas. Conversation his intellect appears to be below average. He is reporting no suicidal or homicidal ideation intent or plan he is reporting no auditory or visual hallucinations or specific delusions. There is no observed evidence of psychosis during our interaction this morning. He does not appear hypomanic or manic. Insight and judgment improving. Affect is constricted. He demonstrates no involuntary repetitive movements he demonstrates no verbal or physical aggressiveness. Plan: The patient will continue on his current psychotropic medications. Social work will try to move the intake to tomorrow for [place]. He continues to remain committed to participating in inpatient chemical dependency treatment. We will monitor him for safety he is encouraged to participate in group. Vital signs reviewed.
[2020-01-21] MEDS: ACETAMINOPHEN TAB 325 MG TAB PO PRN (21:11)
[2020-01-21] MEDS: ZIPRASIDONE 40 MG CAP PO SCH (21:11)
[2020-01-22] MEDS: GABAPENTIN 300 MG CAP PO SCH ×3 (08:13→21:15)
[2020-01-22] MEDS: NICOTINE POLACRILEX 2 MG GUM BUCCAL PRN ×2 (08:13→15:23)
--- NOTE | 2020-01-22 11:04 | P.PN ---
Progress Note - Text Interval history: The patient is found in the hallway he follows me to an interview room. Spontaneously he states he is more anxious he states the voices have "come back with a vengeance". He states voices tell him to harm others. He states that if he is discharged prior to going to [facility] he will go out and use marijuana cocaine and heroin. We discussed his current psychotropic medications and we discussed titrating the Geodon further he is agreeable. He indicates he has been selectively attending groups. Appetite stable. Staff report no significant behavioral disturbances. Mental status exam: The patient's a shorter statured male appearing older than his stated age. He is dressed in the same clothing as the past 2 days. Eye contact is appropriate speech is fluent spontaneous nonpressured. Affect is constricted. He is endorsing auditory hallucinations no visual hallucinations. He is endorsing no specific delusions. During the session there is no observed evidence of psychosis. Thought process is linear for the most part he demonstrates no tangential thinking loose associations or flight of ideas. He does not appear distracted. He does not appear hypomanic or manic. He demonstrates no verbal or physical aggressiveness he demonstrates no involuntary repetitive movements. Insight and judgment limited. Intellectually he falls in the below average range. Plan: The patient will continue on the Geodon we will titrate to 60 mg at bedtime we will monitor him for safety he is encouraged to fully participate in the milieu. We will make arrangements to have him transported to [facility] on Monday if they are willing to accept him on that date. He is encouraged to fully participate in the milieu. Vital signs reviewed.
[2020-01-22] MEDS: ACETAMINOPHEN TAB 325 MG TAB PO PRN ×2 (15:23→20:36)
[2020-01-22] MEDS: ZIPRASIDONE 60 MG CAP PO SCH (20:35)
[2020-01-23] MEDS: GABAPENTIN 300 MG CAP PO SCH ×3 (08:01→21:00)
[2020-01-23] MEDS: NICOTINE POLACRILEX 2 MG GUM BUCCAL PRN ×2 (08:39→13:35)
--- NOTE | 2020-01-23 11:44 | P.PN ---
Progress Note - Text Interval history: The patient is found in the hallway he follows me to an interview room. He indicates that his mood is improving. He states he was able to secure a ride to [place] next week from his ex-girlfriend. He plans to stay with her and she will keep him on "lockdown". He now states that he feels he can keep himself sober because of her supervision. He reports that he had no night terrors last evening he reports no auditory hallucinations. He feels that he is stabilizing. Mental status exam: The patient is a shorter statured male appearing older than his stated age. He is dressed in his own clothing hygiene grooming fair. Eye contact adequate speech is fluent spontaneous nonpressured. He reports his mood is improving affect is euthymic he denies having any suicidal or homicidal ideation intent or plan. He demonstrates no evidence of psychosis hypomania or constance. Insight and judgment limited but improving. He demonstrates no verbal or physical aggressiveness. He denies experiencing any auditory or visual hallucinations or any specific delusions. Plan: The patient will continue on his current psychotropic medications. We will monitor him another day to ensure that he is clinically stabilizing. We will consider discharging him tomorrow to his ex-girlfriend's home. Social work will confirm that he is able to reside there. Vital signs reviewed.
[2020-01-23] MEDS: ACETAMINOPHEN TAB 325 MG TAB PO PRN (16:37)
[2020-01-23] MEDS: ZIPRASIDONE 60 MG CAP PO SCH (20:26)
[2020-01-24 05:28] VITALS: BP 127/62; PULSE 94; RESP 14; TEMP 97.6
[2020-01-24] MEDS: GABAPENTIN 300 MG CAP PO SCH (08:23)
[2020-01-24] MEDS: ACETAMINOPHEN TAB 325 MG TAB PO PRN (08:23)
[2020-01-24] MEDS: NICOTINE POLACRILEX 2 MG GUM BUCCAL PRN (08:25)
--- NOTE | 2020-01-24 11:41 | P.DS ---
Providers Date of admission: 01/18/20 22:57 Expected date of discharge: 01/24/20 Attending physician: Ryan Lindquist Consults: 01/18/20 22:59 Consult Physician Routine Consulting Provider: Padmaja Puga Consult Reason/Comments: medical management Do you want consulting provider notified?: Yes Primary care physician: Stated None - Discharge Diagnosis(es) (1) Bipolar 1 disorder, depressed Current Visit: Yes Status: Acute Priority: High (2) Cannabis use disorder, moderate, dependence Current Visit: Yes Status: Acute Priority: Medium (3) Cocaine use disorder, severe, dependence Current Visit: Yes Status: Acute Priority: High Hospital Course: Brief summary of admission note: This patient is a 29-year-old single male was admitted to the mental health unit through the emergency room for suicidal ideation reported hallucinations and night terrors. He indicated he was depressed for about one week. He reported having hallucinations directing harm to others. The patient is known from previous admission. He has carried a bipolar diagnosis as well is knowing that he has antisocial personality disorder traits. Substance use history includes use of alcohol marijuana and cocaine. The patient refused a urine drug screen during this admission. For full details please refer to the psychiatric evaluation dictated by Dr. Brito. Summary of hospital course: The patient was admitted to the mental health unit voluntarily. The patient was initially seen by Dr. Birto the patient was restarted on his Neurontin 400 mg 3 times daily. The patient felt that that did help him stabilize his mood. The Neurontin was titrated to 600 mg 3 times daily we also added Geodon which was titrated to 60 mg at bedtime. The patient was amenable to participating in inpatient chemical dependency treatment and arrangements were made for him to start this coming Monday. Social work has been in touch with the patient's girlfriend whom he plans to reside with. She indicates that she will supervise him while he is home until Monday and will help transport him to rehab. The patient was seen by internal medicine for routine history and physical exam. garbage depot worker met with the patient to complete a psychosocial assessment and for discharge planning purposes. The patient attended groups and demonstrated no agitated behavior he reported a resolution of symptoms while here. He reports no symptoms of psychosis and he reports no suicidal ideation at this time. He did demonstrate behaviors that are consistent with his personality disorder. Mental status exam: The patient's a shorter statured male appearing older than his stated age. He is balding he is wearing a long sutton he has tattoos evident on his upper extremities. He is dressed in his own clothing which are oversized. Eye contact is appropriate speech is fluent spontaneous nonpressured. He demonstrates no tangential thinking loose associations or flight of ideas. He is reporting his mood is good he denies having any hopelessness thinking he denies having any suicidal ideation intent or plan. He reports no homicidal ideation intent or plan. He demonstrates no evidence of psychosis he is endorsing no auditory or visual hallucinations, he endorses no specific delusions. He demonstrates no verbal or physical aggressiveness he is oriented to person place and date. Intellectually he falls in the below average range. Insight and judgment have sufficiently improved. Impressions 1. Bipolar 1 disorder most recent depressed, cannabis use disorder moderate, cocaine use disorder severe rule out alcohol use disorder Plan: The patient will be discharged mental health unit today. He plans on residing with his ex-girlfriend until Monday after which she will attend inpatient chemical dependency treatment at [facility]. He will continue on Neurontin 600 mg 3 times daily and Geodon 60 mg at bedtime. At this time there is no imminent safety risk he is appropriate for transition to out patient care/chemical dependency treatment at [facility]. He is instructed to continue abstaining from any use of alcohol marijuana or any illicit drugs as these will precipitate mood symptoms and elevate his safety risk. He is instructed to return to the hospital if any acute safety concerns. Patient Condition at Discharge: Stable Plan - Discharge Summary Discharge Rx Participant: No New Discharge Prescriptions: New Ziprasidone [Geodon] 60 mg PO HS #30 cap Gabapentin [Neurontin] 600 mg PO TID #45 cap Nicotine Polacrilex [Nicorette] 2 mg BUCCAL Q4HR PRN #30 gum PRN Reason: Nicotine Cravings Discontinued Fluticasone Propionate [Flonase Allergy Relief] 1 - 2 spray EA NOSTRIL DAILY 5 Days ml Gabapentin [Neurontin] 400 mg PO TID Discharge Medication List Gabapentin [Neurontin] 600 mg PO TID #45 cap 01/24/20 [Rx] Nicotine Polacrilex [Nicorette] 2 mg BUCCAL Q4HR PRN #30 gum 01/24/20 [Rx] Ziprasidone [Geodon] 60 mg PO HS #30 cap 01/24/20 [Rx] Follow up Appointment(s)/Referral(s): intake,intake [Other] - 01/29/20 12:00 pm (picke time at [facility] @ 9am ) [facility] Patient Instructions/Handouts: Depression (DC), Hallucinations (ED) Activity/Diet/Wound Care/Special Instructions: Activity and diet as tolerated. Avoid the use of street drugs and alcohol. Take all medications as prescribed. When you are in need of refills on your medications please contact your medical provider and/or outpatient psychiatrist to have this done. Please go to scheduled outpatient appointment for aftercare treatment. If symptoms return or become worse, call the crisis line at and/or go to the nearest emergency room for evaluation.
== END 2020-01-24 12:13 | disposition home or self-care (01) | DRG 885 ==
LOC: EC 21:58 → 3MHU 22:57
PROVIDERS: ADMIT Psychiatry & Neurology Psychiatry; ATTEND Psychiatry & Neurology Psychiatry
DX: F31.30 Bipolar disorder, current episode depressed, mild or moderate severity, unspecified (principal); F14.20 Cocaine dependence, uncomplicated; R45.851 Suicidal ideations; F12.20 Cannabis dependence, uncomplicated; F17.200 Nicotine dependence, unspecified, uncomplicated; F51.4 Sleep terrors [night terrors]; F60.2 Antisocial personality disorder; Z79.899 Other long term (current) drug therapy
CPT/HCPCS: 80053; 80061; 83036; 84443; 85025; 90686; 90732; 99285

== ENCOUNTER 2020-04-29 16:26 | Inpatient (IN) | payer MEDICAID, OTHER ==
[2020-04-29] MEDS ORDERED: MAGNESIUM HYDROXIDE 2,400 MG/10 ML CUP PO PRN (18:51)
[2020-04-29] MEDS ORDERED: MAG HYDROX/AL HYDROX/SIMETH 30 ML CUP PO PRN (18:51)
[2020-04-29] MEDS ORDERED: ZIPRASIDONE 20 MG VIAL IM PRN (18:51)
[2020-04-29] MEDS ORDERED: LORazepam 1 MG TAB PO PRN (18:51)
[2020-04-29] MEDS ORDERED: LORazepam 2 MG/ML INJ IM PRN (18:55)
[2020-04-29 19:37] LABS: Appearance,Urine Clear (Clear); Bacteria,Urine Rare /hpf; Bilirubin,Urine Negative (Negative); Blood,Urine Negative (Negative); Color,Urine Yellow; Glucose,Urine (UA) Negative (Negative); Ketones,Urine Negative (Negative); Leukocyte Esterase,Urine Negative (Negative); Mucus,Urine Many /hpf; Nitrite,Urine Negative (Negative); PH, Urine 6.5 (5.0-8.0); Protein,Urine 1+ (Negative); RBC,Urine 2 /hpf (0-5); Specific Gravity,Urine 1.028 (1.001-1.035); Squamous Epithelial Cell,Urine <1 /hpf (0-4); Urobilinogen,Urine <2.0 mg/dL (<2.0); WBC,Urine 2 /hpf (0-5)
[2020-04-29] MEDS: ZIPRASIDONE 40 MG CAP PO SCH (20:17)
--- NOTE | 2020-04-29 20:22 | ED ---
Psych HPI - General Chief Complaint: Psychiatric Symptoms Stated Complaint: Mental Health Time Seen by Provider: 04/29/20 16:42 Source: patient Mode of arrival: ambulatory - History of Present Illness Initial Comments: Patient is 29-year-old male presenting to the emergency department for psychiatric evaluation. Patient states he was sent to the emergency department by the [facility] worker in order to be admitted for further psychiatric management. Patient states his blood emergency, back. Patient states he is having difficulty sleeping at night. Patient reports suicidal thoughts by overdosing on prescription medication or cutting his wrist. Patient also reports homicidal thoughts but no actual plans. Patient also reports hearing voices. Patient has no other complaints. - Related Data Home Medications Medication Instructions Recorded Confirmed Ziprasidone [Geodon] 40 mg PO BID 04/29/20 04/29/20 Allergies Allergy/AdvReac Type Severity Reaction Status Date / Time No Known Allergies Allergy Verified 04/29/20 19:59 Review of Systems ROS Statement: Those systems with pertinent positive or pertinent negative responses have been documented in the HPI. ROS Other: All systems not noted in ROS Statement are negative. Past Medical History Past Medical History: No Reported History Additional Past Medical History / Comment(s): borderline personality disorder. MD History of Any Multi-Drug Resistant Organisms: None Reported Past Surgical History: No Surgical Hx Reported Past Anesthesia/Blood Transfusion Reactions: No Reported Reaction Past Psychological History: Bipolar, Depression, Schizoaffective Disorder Smoking Status: Current every day smoker Past Alcohol Use History: Occasional Past Drug Use History: Marijuana - Past Family History family Family Medical History: No Reported History General Exam Limitations: no limitations General appearance: alert, in no apparent distress Head exam: Present: atraumatic, normocephalic, normal inspection Eye exam: Present: normal appearance, PERRL, EOMI Pupils: Present: normal accommodation ENT exam: Present: normal exam, normal oropharynx, mucous membranes moist, TM's normal bilaterally, normal external ear exam Neck exam: Present: normal inspection, full ROM. Absent: tenderness Respiratory exam: Present: normal lung sounds bilaterally. Absent: respiratory distress, wheezes, rales Cardiovascular Exam: Present: regular rate, normal rhythm, normal heart sounds Extremities exam: Present: normal inspection, full ROM, normal capillary refill. Absent: tenderness Back exam: Present: normal inspection, full ROM. Absent: tenderness Neurological exam: Present: alert, oriented X3, normal gait Psychiatric exam: Present: normal affect, normal mood Skin exam: Present: warm, dry, intact, normal color Course Vital Signs 04/29/20 16:28 Temperature 98.7 F Pulse Rate 82 Respiratory 18 Rate Blood Pressure 137/98 O2 Sat by Pulse 95 Oximetry Medical Decision Making - Medical Decision Making Patient is a 29-year-old male presenting to emergency Department for psychiatric evaluation patient brought to the ED on the notice of the [facility] staff. Patient reports homicidal suicidal thoughts. He is also hearing voices. Physical examination was unremarkable. EPS value the patient. Patient will be admitted for further psychiatric evaluation. Case discussed with physician. Disposition Clinical Impression: Suicidal thoughts, Homicidal thoughts, Hearing voices Disposition: ADMITTED IP TO THIS [facility] Condition: Fair Is patient prescribed a controlled substance at d/c from ED?: No Time of Disposition: 20:00
--- NOTE | 2020-04-29 21:41 | P.MDCNMH ---
History of Present Illness H&P Date: 04/29/20 Chief Complaint: medical evaluation 29 year old male with depression , bipolar disorder, PTSD patient comes in after being sent here by his [facility] doctor, due to non compliance with meds, suicidal and homicidal thoughts without definite plan. he admits tonot taking his meds, and he is hoping to get restarted on his meds here. he feels safe and fine, he admits to occasionally hearing voices. otherwise, he denies any fever, chills, chest pain , trouble breathing Review of Systems Pertinent positives as noted in HPI. All other systems were reviewed and are negative Past Medical History Past Medical History: No Reported History Additional Past Medical History / Comment(s): borderline personality disorder. MD History of Any Multi-Drug Resistant Organisms: None Reported Past Surgical History: No Surgical Hx Reported Past Anesthesia/Blood Transfusion Reactions: No Reported Reaction Past Psychological History: Bipolar, Depression, Schizoaffective Disorder Smoking Status: Current every day smoker Past Alcohol Use History: Occasional Past Drug Use History: Marijuana - Past Family History family Family Medical History: No Reported History Medications and Allergies Home Medications Medication Instructions Recorded Confirmed Type Ziprasidone [Geodon] 40 mg PO BID 04/29/20 04/29/20 History Allergies Allergy/AdvReac Type Severity Reaction Status Date / Time No Known Allergies Allergy Verified 04/29/20 19:59 Physical Exam Vitals: Vital Signs Temp Pulse Pulse Resp BP BP Pulse Ox 04/29/20 19:30 97.5 F L 89 20 121/79 96 04/29/20 16:28 98.7 F 82 18 137/98 95 Intake and Output 04/29/20 04/29/20 04/29/20 06:59 14:59 22:59 Other: Weight 79.038 kg Constitutional: No acute distress, conversant, pleasant Eyes: Anicteric sclerae, moist conjunctiva, Pupils equal round reactive to light ENMT: NC/AT Oropharynx clear, tongue piercing, no erythema, or exudates Neck: Supple, FROM, no masses, or JVD No carotid bruits No thyromegaly Lungs: Clear to auscultation Clear to percussion Normal respiratory effort, no accessory muscle use Cardiovascular: Heart regular in rate and rhythm, No murmurs, gallops, or rubs No peripheral edema Abdominal: Soft Nontender, no guarding, rebound or rigidity Abdomen moving with respiration Normoactive bowel sounds No hepatomegaly, No splenomegaly No palpable mass No abdominal wall hernia noted Skin: Normal temperature, tone, texture, turgor No induration No subcutaneous nodules No rash, lesions No ulcers Extremities: No digital cyanosis No clubbing Pedal pulses intact and symmetrical Radial pulses intact and symmetrical No calf tenderness Psychiatric: Alert and oriented to person, place and time Appropriate affect fair judgement Neuro Muscles Strength 5/5 in all 4 extremities Sensation to light touch grossly present throughout Cranial nerves II-XII grossly intact No focal sensory deficits Lymphatics: no palpable cervical or supraclavicular , or inguinal lymph nodes Cranial Nerve Examination - Cranial Nerves Cranial Nerve II- Optic: Intact Cranial Nerve III- Oculomotor: Intact Cranial Nerve IV- Trochlear: Intact Cranial Nerve V- Trigeminal: Intact Cranial Nerve - Abducens: Intact Cranial Nerve VII- Facial: Intact Cranial Nerve VIII- Auditory: Intact Cranial Nerve IX- Glossopharyngeal: Intact Cranial Nerve X- Vagus: Intact Cranial Nerve XI- Accessory: Intact Cranial Nerve XII- Hypoglossal: Intact Results Labs: Abnormal Lab Results - Last 24 Hours (Table) 04/29/20 Range/Units 19:03 Urine Protein 1+ H (Negative) Urine Bacteria Rare H (None) /hpf Urine Mucus Many H (None) /hpf Assessment and Plan Assessment: Medical noncompliance Suicidal and homicidal thoughts Depression and bipolar disorder Management per psych Follow-up labs Thank you for allowing us to participate in the care of this patient. We will follow peripherally. Do not hesitate to contact us with questions. Someone can be reached from the [facility] [place] [place] at all hours of the day at [phone].
[2020-04-30 00:14] LABS: Amphetamine Screen,Urine Not Detected (NotDetected); Barbiturate Screen,Urine Not Detected (NotDetected); Benzodiazepines Screen,Urine Not Detected (NotDetected); Cocaine Screen,Urine Not Detected (NotDetected); Methadone Screen, Urine Not Detected (NotDetected); Opiate Screen,Urine Not Detected (NotDetected); Oxycodone Screen, Urine Not Detected (NotDetected); Phencyclidine Screen,Urine Not Detected (NotDetected); Tricyclic Antidepressant,Urine Not Detected (NotDetected); Urn Cannabinoid Scrn Detected (NotDetected)
[2020-04-30] MEDS: ZIPRASIDONE 40 MG CAP PO SCH (07:50)
[2020-04-30 07:54] LABS: Basophils # (A) 0.1 k/uL (0-0.2); Basophils % (A) 1 %; Eosinophils # (A) 0.2 k/uL (0-0.7); Eosinophils % (A) 3 %; HCT 53.7 % (39.0-53.0); HGB 17.1 gm/dL (13.0-17.5); Lymphocytes # (A) 3.2 k/uL (1.0-4.8); Lymphocytes % (A) 41 %; MCHC 31.8 g/dL (31.0-37.0); Mean Platelet Volume 7.9; Monocytes # (A) 0.4 k/uL (0-1.0); Monocytes % (A) 5 %; Neutrophils # (A) 3.9 k/uL (1.3-7.7); Neutrophils % (A) 49 %; Platelet Count 247 k/uL (150-450); RDW 13.4 % (11.5-15.5); WBC 7.9 k/uL (3.8-10.6)
[2020-04-30 07:59] LABS: ALT 48 U/L (4-49); AST 39 U/L (17-59); African American GFR (CKD) >90 (>60 ml/min/1.73 sqM); Albumin 4.2 g/dL (3.5-5.0); Alkaline Phosphatase 68 U/L (38-126); Anion Gap 7 mmol/L; Blood Urea Nitrogen 17 mg/dL (9-20); Calcium 9.4 mg/dL (8.4-10.2); Carbon Dioxide 22 mmol/L (22-30); Chloride 111 mmol/L (98-107); Cholesterol 193 mg/dL (<200); Glucose 83 mg/dL (74-99); HDL Cholesterol 32 mg/dL (40-60); LDL Cholesterol,Calculated 120 mg/dL (0-99); Non-African American GFR(CKD) >90 (>60 ml/min/1.73 sqM); Potassium 4.4 mmol/L (3.5-5.1); Sodium 140 mmol/L (137-145); Total Bilirubin 0.8 mg/dL (0.2-1.3); Total Protein 6.3 g/dL (6.3-8.2); Triglycerides 207 mg/dL (<150)
[2020-04-30] MEDS: NICOTINE POLACRILEX 2 MG GUM BUCCAL PRN ×3 (08:24→16:40)
[2020-04-30] MEDS ORDERED: NICOTINE 14MG/24HR PATCH TRANSDERM SCH (09:00)
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
[2020-04-30] MEDS: GABAPENTIN 300 MG CAP PO SCH ×3 (10:27→21:29)
[2020-04-30 15:58] LABS: Hemoglobin A1C 5.5 % (4.0-6.0)
[2020-04-30] MEDS ORDERED: ZIPRASIDONE 40 MG CAP PO ONE (21:00)
--- NOTE | 2020-05-01 07:50 | P.PN ---
Subjective Progress Note Date: 05/01/20 Principal diagnosis: Diagnosis: Schizoaffective disorder Subjective the patient says that he slept well tolerated the Neurontin is 600 well and he had Geodon 40 twice yesterday he says he was able to go to groups and tolerated that without difficulty. He was somewhat pressured about if we need to get a hold of his girlfriend so he no has a place to go after call her today because should be at work on Monday and he wants to make sure he gets out then. He says that being in a structured environment he is feeling less suicidal and being back on his medicines he feels more hopeful Objective patient is slightly pressured affect is flat Vital signs temperature 97.9 heart rate 56 respirations 15 blood pressure 111/58 O2 sat is 99 Labs: Hematology showed a slight increase in hematocrit and RBC general chemistry slight increase in chloride nothing of concern. 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 He was still hearing voices feeling anxious and having somewhat ego alien suicidal thoughts in group he initiated contact with staff and even with peers stay for the full group and was appropriate. Assessment plan: Continue the Geodon which should kick in about 2 days maybe 3 and continued the Neurontin at 600 3 times a day and discharge on Monday if he does okay over the weekend Objective - Vital Signs Vital signs: Vital Signs Temp 97.9 F 05/01/20 06:33 Pulse 56 L 05/01/20 06:33 Resp 15 05/01/20 06:33 BP 111/58 05/01/20 06:33 Pulse Ox 99 05/01/20 06:33 - Labs CBC & Chem 7: 04/30/20 07:25 04/30/20 07:25 Labs: Abnormal Lab Results - Last 24 Hours (Table) 04/30/20 04/30/20 Range/Units 07:25 07:25 RBC 6.10 H (4.30-5.90) m/uL Hct 53.7 H (39.0-53.0) % Chloride 111 H (98-107) mmol/L Triglycerides 207 H (<150) mg/dL LDL Cholesterol, Calc 120 H (0-99) mg/dL HDL Cholesterol 32 L (40-60) mg/dL
[2020-05-01] MEDS: GABAPENTIN 300 MG CAP PO SCH ×3 (08:14→21:27)
[2020-05-01] MEDS: NICOTINE POLACRILEX 2 MG GUM BUCCAL PRN (12:00)
[2020-05-01] MEDS: ZIPRASIDONE 80 MG CAP PO SCH (20:17)
[2020-05-02 06:55] VITALS: RESP 16
[2020-05-02] MEDS: GABAPENTIN 300 MG CAP PO SCH ×3 (08:33→19:43)
[2020-05-02] MEDS: ACETAMINOPHEN TAB 325 MG TAB PO PRN ×2 (12:33→18:41)
--- NOTE | 2020-05-02 13:26 | P.PN ---
Progress Note - Text Progress Note Date: 05/02/20 Clinical Problems: Schizoaffective disorder, history of ADHD Interim history: I evaluated the patient on cross coverage for Dr. Gupta. He said multiple prior psychiatric hospitalizations; the most recent was in January 2020 when his discharge diagnoses were bipolar 1 disorder depressed, cocaine use disorder severe and cannabis use disorder moderate. He denied problems or concerns. He denied side effects to his medications. He has not attended therapeutic groups or activities today. He slept 5 hours last night. Mental status exam: He presented as a casually groomed young male who appeared sleepy and sluggish. He made eye contact and appeared to attend to interview. He had no prominent physical abnormalities. He had a blunted facial expression. He had psychomotor retardation but no abnormal involuntary movements. Her speech was not spontaneous and had decreased rate, rhythm and volume. He had no articulation difficulties. Her affect was flat and not reactive. He denied suicidal ideation or wishes. He didn't express feelings of hopelessness, helplessness or worthlessness. He express ideas reference, paranoid ideation or delusions. His thinking was concrete and associations were goal directed. He denied hallucinations and did not appear to be responding to internal stimuli. Assessment: He appears moderately mentally ill minimally improved from admission Plan: Continue inpatient. Safety precautions. Continue Neurontin 600 mg 3 times a day and Geodon 80 mg at bedtime. Ativan 1 mg by mouth/IM 3 times a day when necessary for agitation or aggression and Geodon 20 mg IM twice a day. Her aggression or acute psychosis. Encourage participation in therapeutic groups and activities. Evaluate clinical status response to treatment daily basis.
[2020-05-02] MEDS ORDERED: WATER FOR INJECTION, STERILE 10 ML IV ONE ×2 (14:07→16:23)
[2020-05-02] MEDS ORDERED: ZIPRASIDONE 20 MG VIAL IM ONE (14:07)
[2020-05-02] MEDS: ZIPRASIDONE 80 MG CAP PO SCH (19:44)
[2020-05-03] MEDS: GABAPENTIN 300 MG CAP PO SCH ×3 (08:04→21:05)
[2020-05-03] MEDS: ACETAMINOPHEN TAB 325 MG TAB PO PRN ×2 (11:18→16:33)
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
[2020-05-03] MEDS: ZIPRASIDONE 80 MG CAP PO SCH (20:32)
[2020-05-04] MEDS: ACETAMINOPHEN TAB 325 MG TAB PO PRN ×2 (04:50→10:29)
[2020-05-04 05:25] VITALS: BP 146/75; PULSE 89; TEMP 97.6
[2020-05-04] MEDS: GABAPENTIN 300 MG CAP PO SCH (07:56)
--- NOTE | 2020-05-04 11:45 | P.DS ---
Providers Date of admission: 04/29/20 18:45 Expected date of discharge: 05/04/20 Attending physician: Soy Gupta MD Consults: 04/29/20 18:51 Consult Physician Routine Consulting Provider: Padmaja uPga Consult Reason/Comments: medical management Do you want consulting provider notified?: Yes Primary care physician: Stated None Hospital Course: Patient came into the hospital because he had not been taking his medication he did not seem to understand the [facility] process and feels that he had asked for medicine and they were unable to give a trial he was starting to hear voices and was somewhat depressed going came in the hospital felt hopeful and was restarted on his medications Medications given were Geodon 80 and Neurontin 600 3 times a day which she has taken in the past and done well. The patient tolerated medication well Mental status at time of discharge she was calm good eye contact reasonable response times excellent self care alert oriented to person place time and circumstance gait and station normal no evidence of psychosis he said the voices are clearing up. Assessment stable and we also in encouraged him to be more assertive in the future and not coming off of his medications. He has follow-up arranged for both counseling and medication Assessment: The patient has calmed down and stabilized on his medication and feels that he is ready to work on things outpatient is not a danger to self or others Health Concerns: Patient has no acute medical problems and was stable medically throughout his stay Pertinent Studies: He did have laboratory tests run he mythology showed hematocrit little high and RBC a little high no acute problem general chemistry was normal except for problems with his cholesterol LDL was high and it HDL low he is aware of that but that is a long-term chronic problem. Urinalysis was normal and toxicology showed marijuana Procedures: None Patient Condition at Discharge: Fair Plan - Discharge Summary Discharge Rx Participant: No New Discharge Prescriptions: New Ziprasidone [Geodon] 80 mg PO HS 30 Days #30 cap Gabapentin [Neurontin] 600 mg PO TID 30 Days #60 cap Discontinued Ziprasidone [Geodon] 40 mg PO BID Discharge Medication List Gabapentin [Neurontin] 600 mg PO TID 30 Days #60 cap 05/04/20 [Rx] Ziprasidone [Geodon] 80 mg PO HS 30 Days #30 cap 05/04/20 [Rx] Follow up Appointment(s)/Referral(s): [facility] [Outside] - 05/06/20 11:00 am (05-06-20 @ 11:00 with Suzette Cotter by phone 05-12-20 @ 9:[address] Basurto at [facility] office by I[facility]DISPO) [facility] - 1 Week Patient Instructions/Handouts: How to Stop Smoking (DC), Depression (DC), Cannabis Abuse (DC) Activity/Diet/Wound Care/Special Instructions: Activity and diet as tolerated. Avoid the use of street drugs and alcohol. Take all medications as prescribed. When you are in need of refills on your medications please contact your medical provider and/or outpatient psychiatrist to have this done. Please go to scheduled outpatient appointment for aftercare treatment. If symptoms return or become worse, call the crisis line at and/or go to the nearest emergency room for evaluation
== END 2020-05-04 12:37 | disposition home or self-care (01) | DRG 885 ==
LOC: EC 16:26 → 3MHU 18:45
PROVIDERS: ADMIT Psychiatry & Neurology Psychiatry; ATTEND Psychiatry & Neurology Psychiatry
DX: F31.5 Bipolar disorder, current episode depressed, severe, with psychotic features (principal); R45.851 Suicidal ideations; G71.00 Muscular dystrophy, unspecified; R45.850 Homicidal ideations; F60.3 Borderline personality disorder; F90.9 Attention-deficit hyperactivity disorder, unspecified type; F17.200 Nicotine dependence, unspecified, uncomplicated; F12.90 Cannabis use, unspecified, uncomplicated; F43.10 Post-traumatic stress disorder, unspecified; F14.90 Cocaine use, unspecified, uncomplicated; Z71.6 Tobacco abuse counseling; Z79.899 Other long term (current) drug therapy; Z91.14 Patient's other noncompliance with medication regimen
CPT/HCPCS: 80053; 80061; 80306; 81001; 82075; 83036; 84443; 85025; 99285

== ENCOUNTER 2020-06-02 09:06 | Inpatient (IN) | payer MEDICAID, OTHER ==
[2020-06-02 13:10] LABS: Amphetamine Screen,Urine Not Detected (NotDetected); Barbiturate Screen,Urine Not Detected (NotDetected); Benzodiazepines Screen,Urine Detected (NotDetected); Cocaine Screen,Urine Not Detected (NotDetected); Methadone Screen, Urine Not Detected (NotDetected); Opiate Screen,Urine Not Detected (NotDetected); Oxycodone Screen, Urine Not Detected (NotDetected); Phencyclidine Screen,Urine Not Detected (NotDetected); Tricyclic Antidepressant,Urine Not Detected (NotDetected); Urn Cannabinoid Scrn Detected (NotDetected)
--- NOTE | 2020-06-02 13:11 | ED ---
Psych HPI - General Chief Complaint: Psychiatric Symptoms Stated Complaint: mental health Time Seen by Provider: 06/02/20 09:16 Source: patient Mode of arrival: ambulatory - History of Present Illness Initial Comments: 29-year-old male psychiatric history currently on Geodon presents emergency department today for chief complaint of suicidal ideation voices in his head. Patient states he forgot his voices in his head he states they have been increasing. Patient states they're making him suicidal. Patient states at times he thinks he sees things in the course of his eyes. Patient denies any physical complaints he denies any chest pain shortness of breath headache neck p ain fevers nausea vomiting abdominal pain dysuria or urgency frequency. Patient states that he has been taking his psychiatric medications and he has an appointment on the with [facility] who follows him for his psychiatric history. Patient is no additional complaints Very cooperative on arrival.denies homicidal ideation. Denies suicide attempt - Related Data Previous Rx's Medication Instructions Recorded Gabapentin [Neurontin] 600 mg PO TID 30 Days #60 cap 05/04/20 Ziprasidone [Geodon] 80 mg PO HS 30 Days #30 cap 05/04/20 Allergies Allergy/AdvReac Type Severity Reaction Status Date / Time No Known Allergies Allergy Verified 06/02/20 09:48 Review of Systems ROS Statement: Those systems with pertinent positive or pertinent negative responses have been documented in the HPI. ROS Other: All systems not noted in ROS Statement are negative. Past Medical History Past Medical History: No Reported History Additional Past Medical History / Comment(s): borderline personality disorder. MD History of Any Multi-Drug Resistant Organisms: None Reported Past Surgical History: No Surgical Hx Reported Past Anesthesia/Blood Transfusion Reactions: No Reported Reaction Past Psychological History: Bipolar, Depression, Schizoaffective Disorder Smoking Status: Current every day smoker Past Alcohol Use History: Occasional Past Drug Use History: Marijuana - Past Family History family Family Medical History: No Reported History General Exam - General Exam Comments Initial Comments: General: The patient is awake and alert, in no distress Eye: +3 mm pupils are equal, round and reactive to light, extra-ocular movements are intact. No nystagmus. There is normal conjunctiva bilaterally. No signs of icterus. Ears, nose, mouth and throat: There are moist mucous membranes and no oral lesions. Neck: The neck is supple, there is no tenderness or JVD. Cardiovascular: There is a regular rate and rhythm. No murmur, rub or gallop is appreciated. Respiratory: Lungs are clear to auscultation, respirations are non-labored, breath sounds are equal. No wheezes, stridor, rales, or rhonchi. Gastrointestinal: Soft, non-distended, non-tender abdomen without masses or organomegaly noted. There is no rebound or guarding present. Musculoskeletal: Normal ROM, no tenderness. Strength 5/5. Sensation intact. Pulses equal bilaterally 2+. Neurological: A&O x 3. CN II-XII intact grossly, There are no obvious motor or sensory deficits. Coordination appears grossly intact. Speech is normal. Skin: Skin is warm and dry and no rashes or lesions are noted. Psychiatric: Cooperative, flat affect. Limitations: no limitations Course Vital Signs 06/02/20 09:09 Temperature 98.0 F Pulse Rate 89 Respiratory 16 Rate Blood Pressure 133/90 O2 Sat by Pulse 96 Oximetry Medical Decision Making - Medical Decision Making 29-year-old male presenting today for chief complaint of suicidal ideation voices in his head. Patient normally takes Geodon. Patient is [facility]. Patient is cooperative. No physical complaints denies attempt overdose denies homicidal ideation. Patient advised by mobile crisis unit who recommended admission. - Lab Data Result diagrams: 06/03/20 09:19 06/03/20 09:19 Lab Results 06/02/20 Range/Units 12:12 Urine Opiates Screen Not Detected (NotDetected) Ur Oxycodone Screen Not Detected (NotDetected) Urine Methadone Screen Not Detected (NotDetected) Ur Propoxyphene Screen Not Detected (NotDetected) Ur Barbiturates Screen Not Detected (NotDetected) U Tricyclic Antidepress Not Detected (NotDetected) Ur Phencyclidine Scrn Not Detected (NotDetected) Ur Amphetamines Screen Not Detected (NotDetected) U Methamphetamines Scrn Not Detected (NotDetected) U Benzodiazepines Scrn Detected H (NotDetected) Urine Cocaine Screen Not Detected (NotDetected) U Marijuana (THC) Screen Detected H (NotDetected) Disposition Clinical Impression: Hallucinations, Suicidal ideation Disposition: TRANSFER TO PSYCH HOSP/UNIT Condition: Stable Is patient prescribed a controlled substance at d/c from ED?: No Time of Disposition: 14:22 Decision to Admit Reason: Admit from EC Decision Date: 06/02/20 Decision Time: 12:00
[2020-06-02] MEDS: GABAPENTIN 300 MG CAP PO SCH ×4 (14:59→20:42)
[2020-06-02] MEDS ORDERED: MAGNESIUM HYDROXIDE 2,400 MG/10 ML CUP PO PRN (20:14)
[2020-06-02] MEDS ORDERED: MAG HYDROX/AL HYDROX/SIMETH 30 ML CUP PO PRN (20:14)
[2020-06-02] MEDS ORDERED: LORazepam 1 MG TAB PO PRN (20:14)
[2020-06-02] MEDS ORDERED: NICOTINE 14MG/24HR PATCH TRANSDERM SCH (20:15)
[2020-06-02] MEDS ORDERED: LORazepam 2 MG/ML INJ IM PRN (20:16)
[2020-06-02] MEDS ORDERED: HALOPERIDOL LACTATE 5 MG/ML 1 ML VIAL IM PRN (20:17)
[2020-06-02] MEDS ORDERED: ZIPRASIDONE 80 MG CAP PO SCH ×2 (21:00)
[2020-06-02] MEDS ORDERED: GABAPENTIN 300 MG CAP PO SCH (22:00)
[2020-06-03] MEDS: ACETAMINOPHEN TAB 325 MG TAB PO PRN (06:32)
[2020-06-03 06:48] VITALS: RESP 16
[2020-06-03] MEDS: GABAPENTIN 300 MG CAP PO SCH ×3 (08:18→21:22)
[2020-06-03 10:13] LABS: Basophils # (A) 0.1 k/uL (0-0.2); Basophils % (A) 1 %; Eosinophils # (A) 0.2 k/uL (0-0.7); Eosinophils % (A) 3 %; HCT 54.6 % (39.0-53.0); HGB 17.4 gm/dL (13.0-17.5); Lymphocytes # (A) 2.6 k/uL (1.0-4.8); Lymphocytes % (A) 27 %; MCH 27.9 pg (25.0-35.0); MCHC 31.9 g/dL (31.0-37.0); MCV 87.3 fL (80.0-100.0); Monocytes # (A) 0.3 k/uL (0-1.0); Monocytes % (A) 4 %; Neutrophils # (A) 6.2 k/uL (1.3-7.7); Neutrophils % (A) 65 %; Platelet Count 229 k/uL (150-450); RBC 6.25 m/uL (4.30-5.90); RDW 13.7 % (11.5-15.5); WBC 9.5 k/uL (3.8-10.6)
[2020-06-03 10:19] LABS: ALT 39 U/L (4-49); AST 41 U/L (17-59); African American GFR (CKD) >90 (>60 ml/min/1.73 sqM); Albumin 4.2 g/dL (3.5-5.0); Alkaline Phosphatase 69 U/L (38-126); Anion Gap 8 mmol/L; Blood Urea Nitrogen 19 mg/dL (9-20); Calcium 9.6 mg/dL (8.4-10.2); Carbon Dioxide 25 mmol/L (22-30); Chloride 105 mmol/L (98-107); Cholesterol 181 mg/dL (<200); Glucose 121 mg/dL (74-99); HDL Cholesterol 27 mg/dL (40-60); LDL Cholesterol,Calculated 99 mg/dL (0-99); Non-African American GFR(CKD) >90 (>60 ml/min/1.73 sqM); Potassium 3.9 mmol/L (3.5-5.1); Sodium 138 mmol/L (137-145); Total Bilirubin 0.8 mg/dL (0.2-1.3); Total Protein 6.3 g/dL (6.3-8.2); Triglycerides 277 mg/dL (<150)
[2020-06-03] MEDS: NICOTINE POLACRILEX 2 MG GUM BUCCAL PRN ×2 (11:48→16:04)
--- NOTE | 2020-06-03 13:24 | P.HP ---
Psychiatric H&P - . H&P Date: 06/03/20 History & Physical: Allergies Allergy/AdvReac Type Severity Reaction Status Date / Time No Known Allergies Allergy Verified 06/02/20 09:48 Vital Signs Temp 97.6 F 06/03/20 06:23 Pulse 71 06/03/20 06:23 Resp 16 06/03/20 06:23 BP 130/68 06/03/20 06:23 Pulse Ox 99 06/03/20 01:58 Intake & Output 06/02/20 06/03/20 06/03/20 18:59 06:59 18:59 Weight 83.915 kg 80.739 kg Laboratory Last Values WBC 9.5 k/uL (3.8-10.6) 06/03/20 09:19 RBC 6.25 m/uL (4.30-5.90) H 06/03/20 09:19 Hgb 17.4 gm/dL (13.0-17.5) 06/03/20 09:19 Hct 54.6 % (39.0-53.0) H 06/03/20 09:19 MCV 87.3 fL (80.0-100.0) 06/03/20 09:19 MCH 27.9 pg (25.0-35.0) 06/03/20 09:19 MCHC 31.9 g/dL (31.0-37.0) 06/03/20 09:19 RDW 13.7 % (11.5-15.5) 06/03/20 09:19 Plt Count 229 k/uL (150-450) 06/03/20 09:19 Neutrophils % 65 % 06/03/20 09:19 Lymphocytes % 27 % 06/03/20 09:19 Monocytes % 4 % 06/03/20 09:19 Eosinophils % 3 % 06/03/20 09:19 Basophils % 1 % 06/03/20 09:19 Neutrophils # 6.2 k/uL (1.3-7.7) 06/03/20 09:19 Lymphocytes # 2.6 k/uL (1.0-4.8) 06/03/20 09:19 Monocytes # 0.3 k/uL (0-1.0) 06/03/20 09:19 Eosinophils # 0.2 k/uL (0-0.7) 06/03/20 09:19 Basophils # 0.1 k/uL (0-0.2) 06/03/20 09:19 Sodium 138 mmol/L (137-145) 06/03/20 09:19 Potassium 3.9 mmol/L (3.5-5.1) 06/03/20 09:19 Chloride 105 mmol/L (98-107) 06/03/20 09:19 Carbon Dioxide 25 mmol/L (22-30) 06/03/20 09:19 Anion Gap 8 mmol/L 06/03/20 09:19 BUN 19 mg/dL (9-20) 06/03/20 09:19 Creatinine 0.88 mg/dL (0.66-1.25) 06/03/20 09:19 Est GFR (CKD-EPI)AfAm >90 (>60 ml/min/1.73 sqM) 06/03/20 09:19 Est GFR (CKD-EPI)NonAf >90 (>60 ml/min/1.73 sqM) 06/03/20 09:19 Glucose 121 mg/dL (74-99) H 06/03/20 09:19 Calcium 9.6 mg/dL (8.4-10.2) 06/03/20 09:19 Total Bilirubin 0.8 mg/dL (0.2-1.3) 06/03/20 09:19 AST 41 U/L (17-59) 06/03/20 09:19 ALT 39 U/L (4-49) 06/03/20 09:19 Alkaline Phosphatase 69 U/L (38-126) 06/03/20 09:19 Total Protein 6.3 g/dL (6.3-8.2) 06/03/20 09:19 Albumin 4.2 g/dL (3.5-5.0) 06/03/20 09:19 Triglycerides 277 mg/dL (<150) H 06/03/20 09:19 Cholesterol 181 mg/dL (<200) 06/03/20 09:19 LDL Cholesterol, Calc 99 mg/dL (0-99) 06/03/20 09:19 HDL Cholesterol 27 mg/dL (40-60) L 06/03/20 09:19 TSH 1.830 mIU/L (0.465-4.680) 06/03/20 09:19 Urine Opiates Screen Not Detected (NotDetected) 06/02/20 12:12 Ur Oxycodone Screen Not Detected (NotDetected) 06/02/20 12:12 Urine Methadone Screen Not Detected (NotDetected) 06/02/20 12:12 Ur Propoxyphene Screen Not Detected (NotDetected) 06/02/20 12:12 Ur Barbiturates Screen Not Detected (NotDetected) 06/02/20 12:12 U Tricyclic Antidepress Not Detected (NotDetected) 06/02/20 12:12 Ur Phencyclidine Scrn Not Detected (NotDetected) 06/02/20 12:12 Ur Amphetamines Screen Not Detected (NotDetected) 06/02/20 12:12 U Methamphetamines Scrn Not Detected (NotDetected) 06/02/20 12:12 U Benzodiazepines Scrn Detected (NotDetected) H 06/02/20 12:12 Urine Cocaine Screen Not Detected (NotDetected) 06/02/20 12:12 U Marijuana (THC) Screen Detected (NotDetected) H 06/02/20 12:12 06/03/20 13:16 HPI: 29-year-old male psychiatric history currently on Geodon 60 mg daily with food. He presents to the emergency department on 06/02 for chief complaint of suicidal ideation voices in his head. Patient states his voices in his head have been increasing. Patient states they're making him suicidal. Patient states at times he thinks he sees things in the corner of his eyes. Patient denies any physical complaints he denies any chest pain shortness of breath headache neck pain fevers nausea vomiting abdominal pain dysuria or urgency frequency. Patient states that he has been taking his psychiatric medications and he has an appointment on the with [facility] who follows him for his psychiatric history. Patient has no additional complaints Very cooperative on arrival.denies homicidal ideation. Denies suicide attempt The patient was recently discharged from our unit on 05/04 Symptoms: Patient has difficulty sleeping partly from racing thoughts and partly from depression he also have voices as noted above He occasionally feels like people are touching him when nobody is there but denies any paranoia. He admits to being irritable but there are no specific people that he feels homicidal towards but "you better not mess with me or I might go off ". He also had suicidal ideas which are not ego alien and he feels sad and was the point of life. He says that he was taking 60 mg daily and Neurontin 600 3 times a day and doing very well on that. Did not feel depressed. Past psychiatric history: The patient been in and out of the hospital several times he was somewhat of a poor historian. He was lying in bed at 10:00 when I came to see him did not want to get up and come and talk to me but did so reluctantly. Sage only here because I need my medicines and my doctor told me to come I'm not here for groups or therapy. He has been on Abilify in the past Seroquel in the past Depakote in the past and Concerta in the past. He says he was diagnosed with ADHD but has not taken any medicines for that a long period of time. Depakote didn't help but he was only on 1000 which was an inadequate dose but didn't like the side effects and Seroquel made him sleepy and he can't remember what the Abilify did or did not do. Medical problems the patient believes that he has muscular dystrophy affecting his hands. There are several members of his family who have been diagnosed with that he is applying for disability both for bipolar and muscular dystrophy however he doesn't want to do the work to get diagnosed he just wants to fill out some paperwork and have it given to him. He denies any other medical problems Review of systems is negative no shortness of breath no fever no chest pain no dizziness no constipation ALLERGIES: None Labs: He had labs drawn today hematology shows RBC is slightly and hematocrit is up his past labs have not been elevated on glucose side think he probably ate something when they madhavi his blood it was 121. Urine tox was positive for benzos and marijuana Vital signs temperature 97 6 heart rate 71 respirations 16 blood pressure 130/68 Drug use: He denies heavy drug use except for smoking marijuana every day which is one thing that makes him happy. And rare alcohol use Social history: The patient is a twin they're the only children born to his mom and dad his father taking off when the patient was 4 and not being involved since then. His father at age 48 he was just found in nobody figured out why. Mom is still alive she had 2 more children who are younger than the patient he has no contact with family he knows that when he was young his grandparents on his maternal side were involved and happy then grandma and grandpa has not coming out of the bedroom since then. So he just doesn't really know whether anybody in his family has mood swings or not although he knows everyone that has muscular dystrophy. 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 For enjoyment he rides his bike or smokes pot Mental status exam: The patient has no insight no desire to work on anything he just wants his medication adjusted and then get on his way. He could remember 3 of 3 objects after 3 minutes so short-term memory is fine he is somewhat concrete and rather just does not like to work at thinking. When asked how cats and say snakes are alike he said there is nothing similar. When asked how are they alike and different from a stone he did fairly well saying they're alive they grow and they eat things he could not spell world backward without flipping no one are around but he was able to subtract 7 from 93 he is oriented to person place and time has no insight into any personal need to change anything gait and station are normal self-care is minimal but adequate eye contact is normal no evidence of responding to voices or psychosis he says he still has fleeting suicidal thoughts without a plan. Assessment plan: The patient just wants to get back on medications and would like to get on disability so he can stay in the home and help pay is way and keep his current lifestyle going. However does not like to do the work to solve problems or do paperwork when necessary. The plan is to restart his medicine I'll give him all the Geodon 60 mg at supper and bedtime I think the dose is too low and the Neurontin 3 times a day give that a couple days to settle him down Diagnosis: Schizoaffective disorder History of ADHD Possible muscular dystrophy undiagnosed Prognosis is that he'll stabilize on medicines but will not get much benefit from the program
[2020-06-03] MEDS: ZIPRASIDONE 60 MG CAP PO SCH ×2 (17:58→21:22)
[2020-06-03 18:45] LABS: Hemoglobin A1C 5.9 % (4.0-6.0)
[2020-06-04] MEDS: GABAPENTIN 300 MG CAP PO SCH ×3 (08:28→21:58)
--- NOTE | 2020-06-04 08:42 | P.PN ---
Subjective Progress Note Date: 06/04/20 Principal diagnosis: Schizoaffective Subjective: Patient says that when he took his medicine last night he got very sleepy but that he is feeling somewhat calmer Objective Vital signs: Temperature is 98.1 heart rate 75 respirations 16 blood pressure 113/73 Labs: The patient did eat before the labs are drawn socially sugar and triglycerides was up I don't believe that it represents an acute problems toxicology: Patient was feeling anxious at home he took a Valium that showed up on his screen he also does smoke marijuana regular basis Groups: The patient has been attending faithfully only gets older nervous and comes and goes some does not need much assistance is verbal with other patients and staff Staff assessment: Patient seems somewhat guarded but oriented to person place time and circumstance denies suicidality or homicidality denies psychotic symptoms Mental status exam: Patient is somewhat of a flat affect and is cooperative good eye contact reasonable self-care gait and station and normal response time normal psychomotor activity is normal no evidence of responding to voices no complaints of akathisia Assessment he seems be tolerating his medicine the plan is to give him all of the Geodon tonight and discharge him tomorrow if he tolerates and continues to have relief of his suicidal symptoms Objective - Vital Signs Vital signs: Vital Signs Temp 98.1 F 06/04/20 05:04 Pulse 75 06/04/20 05:04 Resp 16 06/04/20 05:04 BP 113/73 06/04/20 05:04 Pulse Ox 99 06/03/20 01:58 - Labs CBC & Chem 7: 06/03/20 09:19 06/03/20 09:19 Labs: Abnormal Lab Results - Last 24 Hours (Table) 06/03/20 06/03/20 Range/Units 09:19 09:19 RBC 6.25 H (4.30-5.90) m/uL Hct 54.6 H (39.0-53.0) % Glucose 121 H (74-99) mg/dL Triglycerides 277 H (<150) mg/dL HDL Cholesterol 27 L (40-60) mg/dL
--- NOTE | 2020-06-04 09:30 | P.CONS ---
History of Present Illness - Reason for Consult Consult date: 06/04/20 - History of Present Illness Patient is a 40-year-old male with a PMH of tobacco and marijuana abuse who presented to the ED with complaints of auditory hallucinations. The patient was admitted to the mental health unit where he was seen and evaluated. He reported that his voices have decreased since his admission and he overall feels better. He denied any physical complaints. He denied chest pain, shortness of cough, chills, nausea, vomiting, dizziness, or abdominal pain. EKG in the emergency room revealed an normal sinus rhythm at 60 bpm with no acute ST/T-wave changes noted as reviewed by me. Laboratory evaluation was unremarkable. Review of Systems Pertinent positives and negatives as discussed in HPI, a complete review of systems was performed and all other systems are negative. Past Medical History Past Medical History: No Reported History Additional Past Medical History / Comment(s): borderline personality disorder. MD History of Any Multi-Drug Resistant Organisms: None Reported Past Surgical History: No Surgical Hx Reported Past Anesthesia/Blood Transfusion Reactions: No Reported Reaction Past Psychological History: Bipolar, Depression, Schizoaffective Disorder Smoking Status: Current every day smoker Past Alcohol Use History: Occasional Past Drug Use History: Marijuana - Past Family History family Family Medical History: No Reported History Medications and Allergies Home Medications Medication Instructions Recorded Confirmed Type Gabapentin [Neurontin] 600 mg PO TID 30 Days #60 cap 05/04/20 06/02/20 Rx Ziprasidone [Geodon] 80 mg PO HS 30 Days #30 cap 05/04/20 06/02/20 Rx Allergies Allergy/AdvReac Type Severity Reaction Status Date / Time No Known Allergies Allergy Verified 06/02/20 09:48 Physical Exam Vitals: Vital Signs Temp Pulse Resp BP 06/04/20 05:04 98.1 F 75 16 113/73 General: non toxic, no distress, appears at stated age, overweight Derm: no unusual rashes/lesions no unusual ecchymoses, warm, dry Head: atraumatic, normocephalic, symmetric Eyes: EOMI, no lid lag, anicteric sclera, pupils equal round reactive to light ENT: Nose and ears atraumatic, no thrush, no pharyngeal erythema Neck: No thyromegaly, no cervical lymphadenopathy, trachea midline, supple Mouth: no lip lesion, mucus membranes moist Cardiovascular: S1S2 reg, no murmur, positive posterior tibial pulse bilateral, no edema, capillary refill less than 2 seconds Lungs: CTA bilateral, no rhonchi, no rales , no accessory muscle use Abdominal: soft, nontender to palpation, no guarding, no appreciable organomegaly, normal bowel sounds Ext: no gross muscle atrophy, muscle strength 5 out of 5 in all 4 extremities grossly, no contractures, Neuro: CN II-XI grossly intact, light touch intact all 4 extremities, finger to nose within normal limits, Psych: Alert, oriented, appropriate affect Results CBC & Chem 7: 06/03/20 09:19 06/03/20 09:19 Labs: Abnormal Lab Results - Last 24 Hours (Table) 06/03/20 06/03/20 Range/Units : 09:19 RBC 6.25 H (4.30-5.90) m/uL Hct 54.6 H (39.0-53.0) % Glucose 121 H (74-99) mg/dL Triglycerides 277 H (<150) mg/dL HDL Cholesterol 27 L (40-60) mg/dL Assessment and Plan Plan: Psychosis -As per psychiatry Tobacco and Marijuana abuse -Advised on the importance of cessation Thank you for allowing us to participate in the care of this patient. We will follow peripherally. Do not hesitate to contact us with questions. Someone can be reached from the [facility] hospitalist group at all hours of the day at [phone].
[2020-06-04] MEDS: ACETAMINOPHEN TAB 325 MG TAB PO PRN (13:31)
[2020-06-04] MEDS: NICOTINE POLACRILEX 2 MG GUM BUCCAL PRN ×3 (13:32→20:31)
[2020-06-04] MEDS ORDERED: ZIPRASIDONE 60 MG CAP PO SCH (21:00)
[2020-06-05 03:36] VITALS: BP 128/74; PULSE 86; TEMP 98.2
--- NOTE | 2020-06-05 08:14 | P.DS ---
Providers Date of admission: 06/02/20 19:49 Expected date of discharge: 06/05/20 Attending physician: Soy Gupta MD Consults: 06/02/20 20:14 Consult Physician Routine Consulting Provider: Padmaja Puga Consult Reason/Comments: H&P and medical Do you want consulting provider notified?: Yes Primary care physician: Stated None Hospital Course: The patient was admitted to the hospital on 06/02 I saw him on 06/03 and he is being discharged on 06/05 This is a case of a 29-year-old male currently on Geodon 60 mg daily with food. He presents to the emergency department on 06/02 for chief complaint of suicidal ideation voices in his head. Patient states his voices in his head have been increasing. Patient states they're making him suicidal. Patient states at times he thinks he sees things in the corner of his eyes. Patient denies any physical complaints he denies any chest pain shortness of breath headache neck pain fevers nausea vomiting abdominal pain dysuria or urgency frequency. Patient states that he has been taking his psychiatric medications and he has an appointment on the with [facility] who follows him for his psychiatric history. Patient has no additional complaints Very cooperative on arrival.denies homicidal ideation. Denies suicide attempt Medication adjustment I increased his Geodon to 60 at supper and 60 at bedtime but he was too lethargic in the evening so we are trying to give it all at bedtime. He understands that if it doesn't last the whole day he is to try to divided once his body gets used to the tiredness he also understands that must be taken with food in order to work (I believe the lower dose of Geodon was backfiring and causing him to be more anxious the higher dose is much more likely to, person as it dampens dopamine 2 more than his stimulates a serotonin) The patient did attend groups where he was talking with peers and staff while participating did not require much redirection Staff assessment is that the patient was appropriately dressed to care of ADLs compliant with medication and normal psychomotor activity oriented to person place time and circumstance denied any psychotic symptoms his depressive focus cleared up after adjusting the medication Mental status at time of discharge: I woke the patient up at 8:00 in the morning, his attitude was pretty good even though I was just waking him up. Good eye contact normal gait and normal psychomotor activity although he did look a little sleepy. No evidence of psychosis no tearfulness no irritability he is oriented to person place time and circumstance normal speech. He denies any suicidal or homicidal thoughts. His discharge plan is somewhat vague but he has a place to go a girlfriend he loves riding his bicycle. Follow-up the patient has an appointment with his psychiatrist on the I'll give him plenty of medicine to last until then. 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 [facility] and is going to try to have some appointments with her in the next month to help with stability Assessment: The patient is stabilized rapidly is not a danger to self or others Prognosis long-term is somewhat guarded due to compliance issues Health Concerns: Patient was physically stable during his admission Pertinent Studies: Vital signs on his discharge were temperature 98.2 heart rate 86 respirations 16 blood pressure 128/74 and O2 sat 90 Labs: Hematology slightly elevated hematocrit otherwise normal general chemistry was normal any just before he came in so sugar was slightly up he said he felt anxious before he came to the hospital and he took a Valium but does not do that regularly and it is not prescribed so his toxicology was positive for benzos and marijuana which he does admit to using frequently Procedures: None Patient Condition at Discharge: Stable Plan - Discharge Summary Discharge Rx Participant: No New Discharge Prescriptions: New Ziprasidone [Geodon] 120 mg PO HS 30 Days #30 cap Gabapentin [Neurontin] 600 mg PO TID 90 Days #90 cap Discontinued Ziprasidone [Geodon] 80 mg PO HS 30 Days #30 cap Gabapentin [Neurontin] 600 mg PO TID 30 Days #60 cap Discharge Medication List Gabapentin [Neurontin] 600 mg PO TID 90 Days #90 cap 06/05/20 [Rx] Ziprasidone [Geodon] 120 mg PO HS 30 Days #30 cap 06/05/20 [Rx] Follow up Appointment(s)/Referral(s): [facility] [Outside] - 06/09/20 10:00 am (06-09-20 @ 10:00 with DOUBLE NEEDLE OPERATOR Tara Wilkins at [facility] office 06-10-20 @ 2:15 with Suzette Cotter by phone 06-17-20 @ 2:[address] Basurto at [facility] office) None,Stated [Primary Care Provider] - 1-2 days
[2020-06-05] MEDS: GABAPENTIN 300 MG CAP PO SCH (08:37)
== END 2020-06-05 09:40 | disposition home or self-care (01) | DRG 885 ==
LOC: EC 09:06 → 3MHU 19:49
PROVIDERS: ADMIT Psychiatry & Neurology Psychiatry; ATTEND Psychiatry & Neurology Psychiatry
DX: F25.9 Schizoaffective disorder, unspecified (principal); R45.851 Suicidal ideations; Z91.19 Patient's noncompliance with other medical treatment and regimen; F17.200 Nicotine dependence, unspecified, uncomplicated; F32.9 Major depressive disorder, single episode, unspecified; F60.3 Borderline personality disorder; F12.10 Cannabis abuse, uncomplicated; F90.9 Attention-deficit hyperactivity disorder, unspecified type; Z79.899 Other long term (current) drug therapy; Z82.69 Family history of other diseases of the musculoskeletal system and connective tissue
CPT/HCPCS: 80053; 80061; 80306; 82075; 83036; 84443; 85025; 93005; 99285

== ENCOUNTER 2021-10-19 20:23 | Emergency (ER) | payer OTHER ==
[2021-10-19 20:55] VITALS: RESP 18; TEMP 98
--- NOTE | 2021-10-20 01:28 | ED ---
Psych HPI - General Chief Complaint: Psychiatric Symptoms Stated Complaint: Mental Health Time Seen by Provider: 10/19/21 21:58 Source: patient, RN notes reviewed, old records reviewed Mode of arrival: ambulatory Limitations: altered mental status - History of Present Illness Initial Comments: This is a 31-year-old male DF for evaluation. Patient has no history of hearing voices and currently is hearing voices. He is not currently homicidal or suicidal, not doing drugs or alcohol. Patient again has had similar history before. MD Complaint: altered mental status -: days(s) Associated Psychiatric Symptoms: homicidal ideation, racing thoughts, auditory hallucinations, delusions Quality: intermittent, getting worse Improves With: none Worsens With: none Context: recent drug abuse, not taking psychiatric medications, significant life stressor Treatments Prior to Arrival: none - Related Data Previous Rx's Medication Instructions Recorded Gabapentin [Neurontin] 600 mg PO TID 90 Days #90 cap 06/05/20 Ziprasidone [Geodon] 120 mg PO HS 30 Days #30 cap 06/05/20 Allergies Allergy/AdvReac Type Severity Reaction Status Date / Time No Known Allergies Allergy Verified 10/19/21 20:54 Review of Systems ROS Statement: Those systems with pertinent positive or pertinent negative responses have been documented in the HPI. ROS Other: All systems not noted in ROS Statement are negative. Past Medical History Past Medical History: No Reported History Additional Past Medical History / Comment(s): borderline personality disorder. MD History of Any Multi-Drug Resistant Organisms: None Reported Past Surgical History: No Surgical Hx Reported Past Anesthesia/Blood Transfusion Reactions: No Reported Reaction Past Psychological History: Bipolar, Depression, Schizoaffective Disorder Smoking Status: Current every day smoker Past Alcohol Use History: Occasional Past Drug Use History: Marijuana - Past Family History family Family Medical History: No Reported History General Exam Limitations: no limitations General appearance: alert, in no apparent distress Head exam: Present: atraumatic, normocephalic, normal inspection Eye exam: Present: normal appearance, PERRL, EOMI. Absent: scleral icterus, conjunctival injection, periorbital swelling ENT exam: Present: normal exam, mucous membranes moist Neck exam: Present: normal inspection. Absent: tenderness, meningismus, lymphadenopathy Respiratory exam: Present: normal lung sounds bilaterally. Absent: respiratory distress, wheezes, rales, rhonchi, stridor Cardiovascular Exam: Present: regular rate, normal rhythm, normal heart sounds. Absent: systolic murmur, diastolic murmur, rubs, gallop, clicks GI/Abdominal exam: Present: soft, normal bowel sounds. Absent: distended, tenderness, guarding, rebound, rigid Extremities exam: Present: normal inspection, full ROM, normal capillary refill. Absent: tenderness, pedal edema, joint swelling, calf tenderness Back exam: Present: normal inspection Neurological exam: Present: alert, oriented X3, CN II-XII intact Psychiatric exam: Present: normal affect, normal mood Skin exam: Present: warm, dry, intact, normal color. Absent: rash Course Vital Signs 10/19/21 10/20/21 20:52 02:31 Temperature 98 F Pulse Rate 84 81 Respiratory 18 18 Rate Blood Pressure 121/83 119/85 O2 Sat by Pulse 96 99 Oximetry - Reevaluation(s) Reevaluation #1: 10/20/21 Medical record is reviewed Patient's medically clear for psychiatric evaluation Medical Decision Making - Medical Decision Making 31 male to the emergency department for evaluation of altered mental status with delusions and hearing voices. Patient is sleeping here in the ER, not homicidal or suicidal. Patient can be discharged home Disposition Clinical Impression: Cannabis use disorder, moderate, dependence, Acute psychosis Disposition: HOME SELF-CARE Condition: Fair Instructions (If sedation given, give patient instructions): Brief Psychotic Disorder (ED) Is patient prescribed a controlled substance at d/c from ED?: No Referrals: None,Stated [Primary Care Provider] - 1-2 days
[2021-10-20 02:33] VITALS: BP 119/85; PULSE 81
== END 2021-10-20 02:33 | disposition home or self-care (01) ==
LOC: EC 20:23
DX: F23 Brief psychotic disorder (principal); F12.20 Cannabis dependence, uncomplicated; F31.9 Bipolar disorder, unspecified; F25.9 Schizoaffective disorder, unspecified; F17.200 Nicotine dependence, unspecified, uncomplicated
CPT/HCPCS: 82075; 99284

== ENCOUNTER → 2023-09-07 | Outpatient (CLI) | payer OTHER ==
--- NOTE | 2023-09-07 07:39 | US ---
EXAMINATION TYPE: US abdomen complete DATE OF EXAM: 09/07/2023 COMPARISON: NONE CLINICAL INDICATION: Male, 33 years old with history of R10.13 epigastric pain; Pt states vomiting po st prandial TECHNIQUE: Multiple sonographic images of the abdomen are obtained. FINDINGS: EXAM MEASUREMENTS: Liver Length: 15.6 cm Gallbladder Wall: 0.2 cm CBD: 0.3 cm Spleen: 10.3 cm Right Kidney: 11.5 x 5.8 x 4.9 cm Left Kidney: 10.9 x 5.5 x 5.3 cm CRIMINAL RECORDS TECHNICIAN NOTES: Pancreas: Obscured by bowel gas Liver: Bright in echotexture with possible fatty sparing near GB, difficult to penetrate Gallbladder: wnl Evidence for sonographic Posadas's sign: No CBD: wnl Spleen: wnl Right Kidney: wnl Left Kidney: wnl Upper IVC: wnl Abd Aorta: Obscured by overlying bowel gas The liver is homogenous. The intrahepatic portion of the IVC and proximal abdominal aorta are within normal limits. There is no evidence of cholelithiasis. Common bile duct is unremarkable. The visu alized portions of the pancreas are homogenous. The spleen is unremarkable. Kidneys are symmetric a nd free of hydronephrosis. No renal lesions are seen. IMPRESSION: Headaches steatosis with areas of focal fatty sparing.
--- NOTE | 2023-09-07 11:08 | FL ---
EXAMINATION TYPE: FL UGI air w esophagus DATE OF EXAM: 09/07/2023 8:15 AM COMPARISON: NONE CLINICAL HISTORY: R10.13 epigastric pain A total of 60 seconds of fluoroscopic time was utilized during procedure and 15 images obtained. Preliminary view of the abdomen reveals a normal bowel gas pattern. Mild degenerative changes are not ed of the thoracolumbar spine. Upper GI examination was performed according to the air contrast techn ique. Barium and effervescent crystal was swallowed without difficulty or delay. Esophageal perista lsis and motility are within normal limits. There is no evidence for esophagitis, intraluminal mass, hiatal hernia and moderate gastroesophageal reflux. The stomach has a normal appearance in terms of its size, shape and location. No gastric filling defects or ulcer craters are seen. The duodenal bu lb and sweep are also free of intraluminal lesion or ulcer crater. IMPRESSION: Moderate gastroesophageal reflux without esophagitis or hiatal hernia.
== END | disposition home or self-care (01) ==
LOC: RADUSWWP 07:00
PROVIDERS: ATTEND Family Medicine
DX: K76.0 Fatty (change of) liver, not elsewhere classified (principal); K21.00 Gastro-esophageal reflux disease with esophagitis, without bleeding; R10.13 Epigastric pain; R11.10 Vomiting, unspecified
CPT/HCPCS: 74246; 76700

== ENCOUNTER → 2023-10-03 | Outpatient (CLI) | payer OTHER ==
--- NOTE | 2023-10-03 15:52 | P.SLEEP ---
History of Present Illness H&P Date: 10/03/23 This is a 34-year-old mentation was referred to me for evaluation of sleep apnea. 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 Note that the patient also being investigated for myotonic dystrophy as this condition doesn't pending. He has also chronic weakness and locking of the muscles of the hand along with some muscle atrophy. As such, there is a high suspicion that the patient may have an underlying myotonic dystrophy and the patient will be also seen by the neurology team at [facility]. He does have some respiratory insufficiency and his spirometry shows a mild to moderate obstructive/restrictive physiology. The patient is an ex-smoker and he carries around [id number] smoking history. He has also previous and remote history of IV heroin use and currently is clean. He does not drink alcohol. His mother and brother are both alcoholic and his mother has also sleep apnea and she is being treated with a CPAP machine. His father had myotonic dystrophy. Clinically, the patient is reporting snoring, excessive daytime tiredness and sleepiness during the day. His sleep is fragmented and he wakes up choking and gasping for air. He also reports night sweats. He wakes up tired and he has trouble paying attention a fall asleep during the day. Is also having issues with memory and concentration. He goes to bed at around 1 AM and he gets out of bed at around 8 AM in the morning. He has no issues and falling asleep. He wakes up at least 3-4 times the middle of the night mainly related to respiratory issues. His weight has been going up gradually and currently is 5 pounds up over this past one year. The patient has an Louisville score of 14. No sleep paralysis. No hallucinations. No cataplexy. No recurrent pneumonias. No difficulties in swallowing. No grinding of the teeth. No issues with chronic anxiety and intact. No nocturnal heartburn. Review of Systems Constitutional: Reports as per HPI, Reports daytime sleepiness, Reports weight gain Eyes: denies as per HPI, denies blurred vision, denies bulging eye, denies decreased vision, denies diplopia, denies discharge, denies dry eye, denies irritation, denies itching, denies pain, denies photophobia, denies loss of peripheral vision, denies loss of vision, denies tunnel vision/blind spots Ears: deny: decreased hearing, ear discharge, earache, tinnitus Ears, nose, mouth and throat: Reports as per HPI Breasts: absent: as per HPI, gynecomastia Cardiovascular: Reports as per HPI Respiratory: Reports snoring Gastrointestinal: Reports as per HPI Genitourinary: Reports as per HPI Musculoskeletal: Reports as per HPI (Muscle weakness), Reports morning stiffness, Reports muscle cramps, Reports muscle weakness Musculoskeletal: absent: ankle pain, ankle stiffness, ankle swelling, as per HPI, elbow pain, elbow stiffness, elbow swelling, foot pain, foot stiffness, foot swelling, hand pain, hand stiffness, hand swelling, hip pain, hip stiffness, hip swelling, knee pain, knee stiffness, knee swelling, shoulder pain, shoulder stiffness, shoulder swelling, wrist pain, wrist stiffness, wrist swelling Integumentary: Reports as per HPI Neurological: Reports as per HPI Psychiatric: Reports as per HPI Endocrine: Reports fatigue Hematologic/Lymphatic: Reports as per HPI Past Medical History Past Medical History: No Reported History Additional Past Medical History / Comment(s): borderline personality disorder. Myotonic dystrophy History of Any Multi-Drug Resistant Organisms: None Reported Past Surgical History: No Surgical Hx Reported Past Anesthesia/Blood Transfusion Reactions: No Reported Reaction Past Psychological History: Bipolar, Depression, Schizoaffective Disorder Smoking Status: Current every day smoker (The patient also relates), [employer] Past Alcohol Use History: Occasional Past Drug Use History: None Reported (Previous history of IVDA), IV Drug Use (Currently the patient is clean of IV drug use.), Marijuana - Past Family History family Family Medical History: No Reported History Medications and Allergies Home Medications Medication Instructions Recorded Confirmed Type RX: Gabapentin [Neurontin] 600 mg PO TID 90 Days #90 cap 06/05/20 Rx RX: Ziprasidone [Geodon] 120 mg PO HS 30 Days #30 cap 06/05/20 Rx Allergies Allergy/AdvReac Type Severity Reaction Status Date / Time No Known Allergies Allergy Verified 10/19/21 20:54 Physical Exam BP is 121/87, pulse is 75, respirations 18, temperature is 97.6 and weight is 197 pounds. Body mass index is 33.8. Louisville score is at 14. Size of the neck is 15-3/4 of an inch. The patient appeared well nourished and normally developed. The patient has multiple skin tattoos. Vital signs as documented. Head exam is unremarkable. No scleral icterus or corneal arcus noted. Neck is without jugular venous distension, thyromegaly, or carotid bruits. The patient has a metabolic S4 with significant crowding of the posterior pharynx. Carotid upstrokes are brisk bilaterally. Lungs are clear to auscultation and percussion. Cardiac exam reveals the PMI to be normally sized and situated. Rhythm is regular. First and second heart sounds normal. No murmurs, rubs or gallops. Abdominal exam reveals normal bowel sounds, no masses, no organomegaly and no aortic enlargement. Extremities are nonedematous and both femoral and pedal pulses are normal.Examination of the skin revealed no evidence of significant rashes, suspicious appearing nevi or other concerning lesions. 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 He does have also evidence of muscle atrophy/in his upper extremities. Assessment and Plan Plan: Snoring, sleep fragmentation along with excessive hypersomnia and sleepiness with an Louisville score of 14. Rule out possibility of underlying obstructive sleep apnea. Patient has a Mallampati class IV and the patient has chronic hypersomnia. Neuromuscular weakness along with myotonia, rule out underlying myotonic dystrophy and this disorder runs in his family Respiratory insufficiency could be related to neuromuscular weakness. The patient has obstructive/restrictive physiology on his spirometry. This needs to be further investigated and later stage. Remote history of IVDA Remote history of smoking Plan We'll sign off this patient underwent a screening polysomnography with an increased suspicion for him having obstructive sleep apnea. Also consider hypoventilation syndrome due to the possibility of him having neuromuscular weakness and possible myotonic dystrophy. Meanwhile, the patient is going to undergo a neurologic evaluation at [facility] regarding the possibility of myotonic dystrophy. Once his sleep apnea workup is completed, the patient will need also a pulmonary evaluation including an outpatient PFT and will make the necessary treatments accordingly. Encourage weight loss. Maintaining good sleep hygiene measures. We'll see him back after completing a screening polysomnography. Sleep Note - Sleep Note Sleep Note: Temperature: Pulse Rate: Respiratory Rate: Blood Pressure: SpO2: Height: Weight: BMI: Neck Circumference:
== END ==
LOC: 3 N SLEEP 13:49
PROVIDERS: ATTEND Internal Medicine Critical Care Medicine
DX: G47.33 Obstructive sleep apnea (adult) (pediatric) (principal); G47.10 Hypersomnia, unspecified; F17.200 Nicotine dependence, unspecified, uncomplicated; G71.11 Myotonic muscular dystrophy
CPT/HCPCS: 99211

== ENCOUNTER 2023-11-12 19:40 | Outpatient (CLI) | payer OTHER ==
--- NOTE | 2023-11-14 15:48 | P.PCN ---
Date of Procedure: 11/12/23 Operative Findings: Polysomnography report Date of service is 11/12/2023 Pertinent history This is a 34-year-old male patient who was seen in consultation at the sleep center due to concerns of sleep apnea. The patient reported snoring, sleep fragmentation along with chronic hypersomnia sleepiness with an Burwell score of 14. The patient has a Mallampati class IV with significant crowding of the posterior oropharynx. The same time, the patient has neuromuscular weakness along with myotonia/myotonic dystrophy. The patient has chronic respiratory insufficiency secondary to neuromuscular weakness. Pertinent physical findings Height is 5 feet and 4 inches, weight is 197 pounds with a body mass index of 33.8 Technical description The patient was studied using a standard complex polysomnography protocol that included recording of the 2 EKG, Central, occipital and frontal EEG, right and left outer canthus EOG, submental EMG, right and left anterior tibialis EMG, respiratory airflow by thermocouple and or pressure/flow transducer, respiratory efforts by abdominal and thoracic PVDF belts, oxygen saturation by cable oximetry. Position by observation synchronized the PSG. Equipment used: [employer]. Sleep architecture The total recording duration was 424.5 minutes and the total time to sleep was 273.0 minutes. Sleep apnea as he was diminished at 64.3%. The latency to sleep onset was quite prolonged at 123 minutes. Latency to REM sleep was 143 minutes. The sleep architecture was characterized by 16.5% stage I, 67.4% stage II, 12% stage III and XIV 0.1% REM sleep. The wake after sleep onset time was 29 minutes and the total arousal index was 30.3 Sleep continuity summary The patient had a total of 138 arousals with an index of 30.3. The respiratory arousal index was 5.7 Periodic limb movement activity The patient had a total 122. Active movement activity. The pain likely movement activity index was 26.8. There were only 20. Examined with activity with arousals with an arousal index of 4.4 Cardiac summary The average heart rate was 58 minimum heart is of 53 and a maximum heart of 70 Respiratory evaluation The sleep study showed a total of 105 obstructive events of which 4 were obstructive apneas, 0 mixed apneas and 101 were obstructive hypopneas. The resulting AHI was 22.9 consistent with moderate severe obstructive sleep apnea. The patient also has poor central events with a central apnea index of 0.9. Note that the patient's disease severity was worse during REM sleep. AHI during REM was 48.3 Oxygenation analysis The patient had an average baseline pulse ox of 91% while awake. Lowest pulse ox during sleep was 74% occurred during REM sleep. This patient spent approximately 4 hours and 40 minutes of sleep time below pulse ox of 89% Assessment Symptomatic DELIO with an AHI of 22.9 Severe nocturnal oxygen desaturation out of proportion to the severity of obstructive sleep apnea. Rule out underlying neuromuscular weakness contributing to nocturnal oxygen desaturation as the patient has myotonic dystrophy type of muscle disorder and the patient encountered severe nocturnal oxygen desaturation with this patient spent more than 4 hours of the sleep time below pulse ox of 89% Chronic hypersomnia, Burwell score of 8 Myotonic dystrophy Borderline personality disorder History of IVDA, inactive for now Respiratory insufficiency could be related to neuromuscular weakness Plan The patient will need to come back to the sleep center to undergo a CPAP titration. It would likely end up on a CPAP or BiPAP based on the titration and he may also end up on oxygen supplementation combination with CPAP/BiPAP therapy to maintain saturation above 90%. There is another concern of neuromuscular weakness and the patient will need a outpatient pulmonary function test to assess his baseline pulmonary functions while awake. The plan for now is to complete the titration and the patient will see him back following that in the pulmonary clinic for a compliancy check and further pulmonary workup to assess pulmonary functions and muscle forces.
== END 2023-11-13 06:47 | disposition home or self-care (01) ==
LOC: 3 N SLEEP 19:40
PROVIDERS: ATTEND Internal Medicine Critical Care Medicine
DX: G47.33 Obstructive sleep apnea (adult) (pediatric) (principal); G71.11 Myotonic muscular dystrophy; G47.10 Hypersomnia, unspecified; F60.3 Borderline personality disorder; R06.89 Other abnormalities of breathing; G70.9 Myoneural disorder, unspecified; F17.200 Nicotine dependence, unspecified, uncomplicated; Z87.898 Personal history of other specified conditions
CPT/HCPCS: 95810

== ENCOUNTER 2024-04-10 21:34 | Observation (INO) | payer OTHER ==
[2024-04-10 21:46] VITALS: TEMP 98
--- NOTE | 2024-04-10 22:07 | ED ---
SOB HPI - General Source: patient, EMS Mode of arrival: EMS Limitations: no limitations <Blaise Fajardo - Last Filed: 04/10/24 22:07> <Chris Guerra - Last Filed: 04/11/24 03:24> - General Chief Complaint: Shortness of Breath Stated Complaint: HALLE Time Seen by Provider: 04/10/24 22:07 - History of Present Illness Initial Comments: Quick note: 33-year-old male presenting with chief complaint of shortness of breath. Started around 2100 tonight. Admits to chest tightness. (Blaise Fajardo) 33-year-old male with prior history of IV drug use which patient reports last use was 8 years ago presenting to the ED with complaints of chest pain and shortness of breath. Patient reports yesterday noticed pain in the middle of his chest which eventually went away however states when he woke up today he woke up with pain in the middle of his chest with associated shortness of breath which has been gradually worsening since onset. No associated diaphoresis or nausea/vomiting. No fever or chills. No other complaints at this time. (Chris Guerra) - Related Data Previous Rx's Medication Instructions Recorded Gabapentin [Neurontin] 600 mg PO TID 90 Days #90 cap 06/05/20 Ziprasidone [Geodon] 120 mg PO HS 30 Days #30 cap 06/05/20 Allergies Allergy/AdvReac Type Severity Reaction Status Date / Time No Known Allergies Allergy Verified 04/10/24 21:46 Review of Systems ROS Other: All systems not noted in ROS Statement are negative. <Blaise Fajardo - Last Filed: 04/10/24 22:07> ROS Other: All systems not noted in ROS Statement are negative. <Chris Guerra - Last Filed: 04/11/24 03:24> ROS Statement: Those systems with pertinent positive or pertinent negative responses have been documented in the HPI. Past Medical History Past Medical History: No Reported History Additional Past Medical History / Comment(s): borderline personality disorder. MD History of Any Multi-Drug Resistant Organisms: None Reported Past Surgical History: No Surgical Hx Reported Past Anesthesia/Blood Transfusion Reactions: No Reported Reaction Past Psychological History: Bipolar, Depression, Schizoaffective Disorder Smoking Status: Current every day smoker, Vaper Past Alcohol Use History: None Reported Past Drug Use History: Marijuana - Past Family History family Family Medical History: No Reported History <Blaise Fajardo - Last Filed: 04/10/24 22:07> General Exam Limitations: no limitations <Blaise Fajardo - Last Filed: 04/10/24 22:07> General appearance: alert, in no apparent distress Eye exam: Present: normal appearance Neck exam: Present: normal inspection Respiratory exam: Present: normal lung sounds bilaterally Cardiovascular Exam: Present: tachycardia GI/Abdominal exam: Present: soft, normal bowel sounds. Absent: distended, t enderness, guarding, rebound, rigid Neurological exam: Present: alert, oriented X3 Skin exam: Present: warm, dry <Chris Guerra - Last Filed: 04/11/24 03:24> - General Exam Comments Initial Comments: Visual Physical Exam Vital signs reviewed General: Well-appearing, nontoxic, no acute distress. Head: Normocephalic, atraumatic Eyes: PERRLA, EOMI ENT: Airway patent Chest: Nonlabored breathing Skin: No visual rash, normal skin tone Neuro: Alert and oriented 3 Musculoskeletal: No gross abnormalities (Blaise Fajardo) Course Vital Signs 04/10/24 04/11/24 21:43 00:28 Temperature 98.0 F Pulse Rate 106 H 90 Respiratory 14 18 Rate Blood Pressure 135/83 124/89 O2 Sat by Pulse 97 96 Oximetry Medical Decision Making <Blaise Fajardo - Last Filed: 04/10/24 22:07> - Lab Data Result diagrams: 04/10/24 21:49 04/10/24 21:49 <Chris Guerra - Last Filed: 04/11/24 03:24> - Medical Decision Making I performed the quick note portion of this visit, electronically signed Blaise Fajardo PA-C (Blaise Fajardo) Was pt. sent in by a medical professional or institution ([facility], DOG HANDLER OR TRAINER, urgent care, hospital, or [facility]...) When possible be specific @ -No Did you speak to anyone other than the patient for history (EMS, parent, family, police, friend...)? What history was obtained from this source @ -No Did you review nursing and triage notes (agree or disagree)? Why? @ -I reviewed and agree with nursing and triage notes Were old charts reviewed (outside hosp., previous admission, EMS record, old EKG, old radiological studies, urgent care reports/EKG's, [facility] records)? Report findings @ -No old charts were reviewed Differential Diagnosis (chest pain, altered mental status, abdominal pain women, abdominal pain men, vaginal bleeding, weakness, fever, dyspnea, syncope, headache, dizziness, GI bleed, back pain, seizure, CVA, palpatations, mental health, musculoskeletal)? @ -Differential Chest Pain: Stable Angina, Unstable Angina, STEMI, NSTEMI Aortic Dissection, Pneumothorax, Musculoskeletal, Esophageal Spasm GERD, Cholecystitis, Pancreatitis, Zoster, this is not meant to be an all-inclusive list. EKG interpreted by me (3pts min.). @ -EKG interpreted me showing sinus tachycardia at 106 bpm with nonspecific findings. CO 186, QRS 92, QT/QTc 356/428. X-rays interpreted by me (1pt min.). @ -Chest x-ray inter by me which revealed no evidence of acute finding. CT interpreted by me (1pt min.). @ -CT angio of the chest interpreted me which showed findings possibly consistent with mild emphysema, no other acute findings. U/S interpreted by me (1pt. min.). @ -None done What testing was considered but not performed or refused? (CT, X-rays, U/S, labs)? Why? @ -None What meds were considered but not given or refused? Why? @ -None Did you discuss the management of the patient with other professionals (professionals i.e. , PA, DOG HANDLER OR TRAINER, lab, RT, psych nurse, social professionals, miscellaneous machine operator, teacher, booking officer, case management coordinator)? Give summary @ -No Was smoking cessation discussed for >3mins.? @ -No Was critical care preformed (if so, how long)? @ -Yes, 35 minutes Were there social determinants of health that impacted care today? How? (Homelessness, low income, unemployed, alcoholism, drug addiction, transportation, low edu. Level, literacy, decrease access to med. care, snf, rehab)? @ -No Was there de-escalation of care discussed even if they declined (Discuss DNR or withdrawal of care, Hospice)? DNR status @ -No What co-morbidities impacted this encounter? (DM, HTN, Smoking, COPD, CAD, Cancer, CVA, ARF, Chemo, Hep., AIDS, mental health diagnosis, sleep apnea, mo rbid obesity)? @ -None Was patient admitted / discharged? Hospital course, mention meds given and r oute, prescriptions, significant lab abnormalities, going to OR and other pertinent info. @ -Admission 33-year-old male presenting to the ED with complaints of chest pain and shortness of breath. Laboratory studies reviewed. CBC does show an elevated white blood cell count 12.2 with polycythemia of 20 point chemistry panel does show slight transaminitis with a AST of 72, ALT of 69 slight elevation of bilirubin at 1.9. Initial troponin 0.067 with repeat at 0.070. Patient started on heparin. Will be admitted on telemetry with consult to cardiology. Undiagnosed new problem with uncertain prognosis? @ -No Drug Therapy requiring intensive monitoring for toxicity (Heparin, Nitro, Insulin, Cardizem)? @ -Yes, heparin Were any procedures done? @ -No Diagnosis/symptom? @ -NSTEMI Acute, or Chronic, or Acute on Chronic? @ -Acute Uncomplicated (without systemic symptoms) or Complicated (systemic symptoms)? @ -Complicated Side effects of treatment? @ -No Exacerbation, Progression, or Severe Exacerbation? @ -No Poses a threat to life or bodily function? How? (Chest pain, USA, IA, pneumonia, PE, COPD, DKA, ARF, appy, cholecystitis, CVA, Diverticulitis, Homicidal, Suicidal, threat to staff... and all critical care pts) @ -Yes, NSTEMI (Chris Guerra) - Lab Data Lab Results 04/10/24 04/10/24 04/10/24 Range/Units 21:49 21:49 21:49 WBC 12.2 H (3.8-10.6) k/uL RBC 6.88 H (4.30-5.90) m/uL Hgb 20.2 H* (13.0-17.5) gm/dL Hct 58.7 H* (39.0-53.0) % MCV 85.2 (80.0-100.0) fL MCH 29.4 (25.0-35.0) pg MCHC 34.5 (31.0-37.0) g/dL RDW 13.4 (11.5-15.5) % Plt Count 290 (150-450) k/uL MPV 8.7 Neutrophils % 69 % Lymphocytes % 21 % Monocytes % 6 % Eosinophils % 1 % Basophils % 2 % Neutrophils # 8.4 H (1.3-7.7) k/uL Lymphocytes # 2.6 (1.0-4.8) k/uL Monocytes # 0.7 (0-1.0) k/uL Eosinophils # 0.1 (0-0.7) k/uL Basophils # 0.2 (0-0.2) k/uL PT (10.0-12.5) sec INR (<1.2) APTT (22.0-30.0) sec D-Dimer (<0.60) mg/L FEU Sodium 141 (137-145) mmol/L Potassium 3.9 (3.5-5.1) mmol/L Chloride 106 (98-107) mmol/L Carbon Dioxide 21 L (22-30) mmol/L Anion Gap 14 mmol/L BUN 30 H (9-20) mg/dL Creatinine 0.81 (0.66-1.25) mg/dL Est GFR (CKD-EPI)AfAm >90 (>60 ml/min/1.73 sqM) Est GFR (CKD-EPI)NonAf >90 (>60 ml/min/1.73 sqM) Glucose 95 (74-99) mg/dL Calcium 10.1 (8.4-10.2) mg/dL Total Bilirubin 1.9 H (0.2-1.3) mg/dL AST 72 H (17-59) U/L ALT 69 H (4-49) U/L Alkaline Phosphatase 97 (38-126) U/L Troponin I 0.067 H* (0.000-0.034) ng/mL Total Protein 7.2 (6.3-8.2) g/dL Albumin 4.9 (3.5-5.0) g/dL 04/10/24 04/11/24 Range/Units 23:27 01:40 WBC (3.8-10.6) k/uL RBC (4.30-5.90) m/uL Hgb (13.0-17.5) gm/dL Hct (39.0-53.0) % MCV (80.0-100.0) fL MCH (25.0-35.0) pg MCHC (31.0-37.0) g/dL RDW (11.5-15.5) % Plt Count (150-450) k/uL MPV Neutrophils % % Lymphocytes % % Monocytes % % Eosinophils % % Basophils % % Neutrophils # (1.3-7.7) k/uL Lymphocytes # (1.0-4.8) k/uL Monocytes # (0-1.0) k/uL Eosinophils # (0-0.7) k/uL Basophils # (0-0.2) k/uL PT 11.7 (10.0-12.5) sec INR 1.1 (<1.2) APTT 188.1 H* (22.0-30.0) sec D-Dimer <0.17 (<0.60) mg/L FEU Sodium (137-145) mmol/L Potassium (3.5-5.1) mmol/L Chloride (98-107) mmol/L Carbon Dioxide (22-30) mmol/L Anion Gap mmol/L BUN (9-20) mg/dL Creatinine (0.66-1.25) mg/dL Est GFR (CKD-EPI)AfAm (>60 ml/min/1.73 sqM) Est GFR (CKD-EPI)NonAf (>60 ml/min/1.73 sqM) Glucose (74-99) mg/dL Calcium (8.4-10.2) mg/dL Total Bilirubin (0.2-1.3) mg/dL AST (17-59) U/L ALT (4-49) U/L Alkaline Phosphatase (38-126) U/L Troponin I 0.070 H* (0.000-0.034) ng/mL Total Protein (6.3-8.2) g/dL Albumin (3.5-5.0) g/dL Disposition <Blaise Fajardo - Last Filed: 04/10/24 22:07> <Chris Guerra - Last Filed: 04/11/24 03:24> Clinical Impression: NSTEMI (non-ST elevated myocardial infarction) Disposition: ADMITTED IP TO THIS [facility] Condition: Fair Referrals: Jatin Bush MD [Primary Care Provider] - 1-2 days
[2024-04-10 22:17] LABS: ALT 69 U/L (4-49); AST 72 U/L (17-59); African American GFR (CKD) >90 (>60 ml/min/1.73 sqM); Albumin 4.9 g/dL (3.5-5.0); Alkaline Phosphatase 97 U/L (38-126); Anion Gap 14 mmol/L; Blood Urea Nitrogen 30 mg/dL (9-20); Calcium 10.1 mg/dL (8.4-10.2); Carbon Dioxide 21 mmol/L (22-30); Chloride 106 mmol/L (98-107); Glucose 95 mg/dL (74-99); Non-African American GFR(CKD) >90 (>60 ml/min/1.73 sqM); Potassium 3.9 mmol/L (3.5-5.1); Sodium 141 mmol/L (137-145); Total Bilirubin 1.9 mg/dL (0.2-1.3); Total Protein 7.2 g/dL (6.3-8.2)
[2024-04-10 22:37] LABS: Basophils # (A) 0.2 k/uL (0-0.2); Basophils % (A) 2 %; Eosinophils # (A) 0.1 k/uL (0-0.7); Eosinophils % (A) 1 %; Lymphocytes # (A) 2.6 k/uL (1.0-4.8); Lymphocytes % (A) 21 %; MCH 29.4 pg (25.0-35.0); MCHC 34.5 g/dL (31.0-37.0); MCV 85.2 fL (80.0-100.0); Mean Platelet Volume 8.7; Monocytes # (A) 0.7 k/uL (0-1.0); Monocytes % (A) 6 %; Neutrophils # (A) 8.4 k/uL (1.3-7.7); Neutrophils % (A) 69 %; Platelet Count 290 k/uL (150-450); RBC 6.88 m/uL (4.30-5.90); RDW 13.4 % (11.5-15.5); WBC 12.2 k/uL (3.8-10.6)
[2024-04-10 22:50] LABS: HCT 58.7 % (39.0-53.0); HGB 20.2 gm/dL (13.0-17.5)
[2024-04-11] MEDS: HEPARIN SOD,PORK IN 0.45% NACL 25,000 UNIT in 0.45% NACL 1 250ML.BAG IV SCH (00:07)
[2024-04-11] MEDS: HEPARIN SODIUM 1,000 UN/ML (10ML VL) IV ONE (00:09)
--- NOTE | 2024-04-11 01:40 | CT ---
EXAM: CT Angiography Chest With Intravenous Contrast CLINICAL HISTORY: ITS.REASON CT Reason: dyspnea TECHNIQUE: Axial computed tomographic angiography images of the chest with intravenous contrast. CTDI is 17.6 mGy and DLP is 344.3 mGy-cm. This CT exam was performed using one or more of the following dose reduction techniques: automated exposure control, adjustment of the mA and/or kV according to patient size, and/or use of iterative reconstruction technique. MIP reconstructed images were created and reviewed. COMPARISON: X-ray chest: 04/10/2024 FINDINGS: Pulmonary arteries: Normal caliber main/central pulmonary arteries. No pulmonary embolism. Aorta: No acute findings. No thoracic aortic aneurysm. Lungs: Bilateral mild/moderate bronchial wall thickening. Very mild emphysema. No mass. No consolidation. Pleural space: Unremarkable. No significant effusion. No pneumothorax. A mildly elevated right hemidiaphragm. Heart: Unremarkable. No cardiomegaly. No significant pericardial effusion. No evidence of RV dysfunction. Bones/joints: No acute fracture. No dislocation. Soft tissues: Unremarkable. Lymph nodes: Unremarkable. No enlarged lymph nodes. Other findings: Bilateral small gynecomastia. . Fatty hepatic infiltration. A mildly distended gallbladder. IMPRESSION: No pulmonary embolism, aortic aneurysm or dissection. Mild/moderate bilateral bronchial wall thickening. Possibly mild pulmonary emphysema. No mass. No consolidation. .
--- NOTE | 2024-04-11 01:42 | XR ---
EXAM: XR Chest, 2 Views CLINICAL HISTORY: ITS.REASON XR Reason: difficulty breathing TECHNIQUE: Frontal and lateral views of the chest. COMPARISON: None FINDINGS: Lungs underexpanded lungs. No consolidation. Pleural space: No pleural effusion. No pneumothorax. Elevated diaphragm right more than the left. Heart: No definite cardiomegaly. Mediastinum: Unremarkable. Normal mediastinal contour. Bones/joints: Unremarkable. No acute fracture. . IMPRESSION: No definite acute cardiopulmonary abnormality. .
[2024-04-11 02:28] LABS: INR 1.1 (<1.2); Prothrombin Time 11.7 sec (10.0-12.5)
[2024-04-11 02:39] LABS: Partial Thromboplastin Time 188.1 sec (22.0-30.0)
[2024-04-11] MEDS ORDERED: NITROGLYCERIN SL TABS 0.4 MG TAB SUBLINGUAL PRN (03:25)
[2024-04-11 04:10] LABS: Amphetamine Screen,Urine Detected (NotDetected); Barbiturate Screen,Urine Not Detected (NotDetected); Benzodiazepines Screen,Urine Not Detected (NotDetected); Cocaine Screen,Urine Not Detected (NotDetected); Methadone Screen, Urine Not Detected (NotDetected); Opiate Screen,Urine Not Detected (NotDetected); Oxycodone Screen, Urine Not Detected (NotDetected); Phencyclidine Screen,Urine Not Detected (NotDetected); Tricyclic Antidepressant,Urine Not Detected (NotDetected); Urn Cannabinoid Scrn Detected (NotDetected)
[2024-04-11 04:22] VITALS: PULSE 82
[2024-04-11 05:09] LABS: Basophils # (A) 0.1 k/uL (0-0.2); Basophils % (A) 1 %; Eosinophils # (A) 0.1 k/uL (0-0.7); Eosinophils % (A) 1 %; Lymphocytes # (A) 3.4 k/uL (1.0-4.8); Lymphocytes % (A) 32 %; MCH 28.3 pg (25.0-35.0); MCHC 32.2 g/dL (31.0-37.0); MCV 87.9 fL (80.0-100.0); Mean Platelet Volume 8.4; Monocytes # (A) 0.8 k/uL (0-1.0); Monocytes % (A) 7 %; Neutrophils % (A) 57 %; Platelet Count 242 k/uL (150-450); RDW 13.4 % (11.5-15.5); WBC 10.5 k/uL (3.8-10.6)
[2024-04-11 05:22] LABS: Partial Thromboplastin Time 25.7 sec (22.0-30.0); Prothrombin Time 10.9 sec (10.0-12.5)
[2024-04-11 05:26] LABS: HCT 58.9 % (39.0-53.0)
[2024-04-11] MEDS: HEPARIN SODIUM 1,000 UN/ML (10ML VL) IV PRN (05:34)
[2024-04-11 06:51] VITALS: BP 128/88; RESP 18
[2024-04-11] MEDS ORDERED: HEPARIN SODIUM,PORCINE 5,000 UNIT/ML 1 ML VIAL SQ SCH (08:30)
--- NOTE | 2024-04-11 09:08 | P.CRDCN ---
History of Present Illness History of present illness: HISTORY OF PRESENT ILLNESS: This is a 33-year-old male with a past medical history significant for myotonic muscular dystrophy, marijuana use, and former IV drug abuse. Patient does not f ollow with a [employer] worker. We have been asked to see the patient in consultation for elevated troponins. Patient examined at the bedside in the emergency room. Patient states a couple days ago he took a nap and when he woke up he started to have chest discomfort. He states the pain is in the middle of his chest. He denied any radiation of the pain. He states it felt like somebody was sitting o n his chest. He also reports feeling short of breath. The patient does report daily marijuana use and states he last used marijuana yesterday. Patient's drug screen was positive for methamphetamines and amphetamines. The patient denies any other drug use besides marijuana. DIAGNOSTICS: - EKG reveals sinus mechanism with early repolarization. No signs of acute ischemia. - Chest xray no definite acute cardiopulmonary process. -Chest CTA: Negative for pulmonary embolism aortic aneurysm or dissection. Mild to moderate bilateral bronchial wall thickening. Possible mild pulmonary emphysema. No mass. No consolidation. - Laboratory data: WBC 10.5. Hemoglobin 19.0. Platelet count 242. D-dimer 0.17. Sodium 141. Potassium 3.9. BUN 30. Creatinine 0.81. Bilirubin 1.9. AST 72. ALT 69. Troponin 0.067. 0.070. 0.052. - Current home cardiac medications include none. REVIEW OF SYSTEMS: At the time of my exam: CONSTITUTIONAL: Denies fever or chills. HEENT: Denies blurred vision, vision changes, or eye pain. Denies hemoptysis CARDIOVASCULAR: Denies chest pain. Denies orthopnea. Denies PND. Denies palpitations RESPIRATORY: Denies shortness of breath. GASTROINTESTINAL: Denies abdominal pain. Denies nausea or vomiting. HEMATOLOGIC: Denies bleeding disorders. GENITOURINARY: Denies any blood in urine. SKIN: Denies pruitis. Denies rash. PHYSICAL EXAM: VITAL SIGNS: Reviewed. GENERAL: Well-developed in no acute distress. HEENT: Head is normocephalic. Pupils are equal, round. Sclerae anicteric. Mucous membranes of the mouth are moist. Neck supple. No JVD or thyromegaly LUNGS: Respirations even and unlabored. Lungs essentially clear to auscultation bilaterally. HEART: Regular rate and rhythm. S1 and S2 heard. ABDOMEN: Soft. Nondistended. Nontender. EXTREMITIES: Normal range of motion. No clubbing or cyanosis. Peripheral pulses intact. No lower extremity edema NEUROLOGIC: Awake and alert. Oriented x 3. ASSESSMENT: Chest pain with shortness of breath, etiology unclear Elevated troponins, flat, of unclear significance, no evidence of acute coronary syndrome Marijuana use Drug screen positive for methamphetamines and amphetamines Marijuana use Former IV drug abuse Myotonic muscular dystrophy PLAN: An acute coronary but has been ruled out Discontinue IV heparin. Begin subcu heparin. Repeat drug screen this morning as patient denies any use of methamphetamines or amphetamines Abstinence from drugs encouraged Obtain CRP and ESR Obtain 2D echo to assess cardiac structure and function Pending echocardiogram results, will schedule patient for dobutamine stress test in a.m. N.p.o. at midnight Further recommendations pending patient course Nurse practitioner note has been reviewed by physician. Signing provider agrees with the documented findings, assessment, and plan of care documented by [employer]EN[employer] PROCESSING TECH as a scribe. Past Medical History Past Medical History: No Reported History Additional Past Medical History / Comment(s): borderline personality disorder. MD History of Any Multi-Drug Resistant Organisms: None Reported Past Surgical History: No Surgical Hx Reported Past Anesthesia/Blood Transfusion Reactions: No Reported Reaction Past Psychological History: Bipolar, Depression, Schizoaffective Disorder Smoking Status: Current every day smoker, Vaper Past Alcohol Use History: None Reported Past Drug Use History: Marijuana - Past Family History family Family Medical History: No Reported History Medications and Allergies Home Medications Medication Instructions Recorded Confirmed Type No Known Home Medications 04/11/24 04/11/24 History Allergies Allergy/AdvReac Type Severity Reaction Status Date / Time No Known Allergies Allergy Verified 04/11/24 07:50 Physical Exam Vitals: Vital Signs Temp Pulse Resp BP Pulse Ox 04/11/24 06:50 82 18 128/88 95 04/11/24 04:21 82 16 108/71 93 L 04/11/24 03:15 77 18 113/84 94 L 04/11/24 00:28 90 18 124/89 96 04/10/24 21:43 98.0 F 106 H 14 135/83 97 Intake and Output 04/10/24 04/11/24 04/11/24 22:59 06:59 14:59 Intake Total 36.375 Balance 36.375 Intake: Intake, IV Titration 36.375 Amount Heparin Sod,Pork in 0.45% 36.375 NaCl 25,000 unit In 0.45 % NaCl 1 250ml.bag @ 12 UNITS/KG/HR 9.798 mls/hr IV .Q24H [facility] Rx#: [id number] Other: Weight 81.647 kg Results 04/11/24 04:39 04/10/24 21:49 Cardiac Enzymes 04/10/24 04/10/24 04/10/24 Range/Units 21:49 21:49 23:27 AST 72 H (17-59) U/L Troponin I 0.067 H* 0.070 H* (0.000-0.034) ng/mL 04/11/24 Range/Units 04:39 AST (17-59) U/L Troponin I 0.052 H* (0.000-0.034) ng/mL Coagulation 04/11/24 04/11/24 Range/Units 01:40 04:39 PT 11.7 10.9 (10.0-12.5) sec APTT 188.1 H* 25.7 (22.0-30.0) sec CBC 04/10/24 04/11/24 Range/Units 21:49 04:39 WBC 12.2 H 10.5 (3.8-10.6) k/uL RBC 6.88 H 6.70 H (4.30-5.90) m/uL Hgb 20.2 H* 19.0 H (13.0-17.5) gm/dL Hct 58.7 H* 58.9 H* (39.0-53.0) % Plt Count 290 242 (150-450) k/uL Comprehensive Metabolic Panel 04/10/24 Range/Units 21:49 Sodium 141 (137-145) mmol/L Potassium 3.9 (3.5-5.1) mmol/L Chloride 106 (98-107) mmol/L Carbon Dioxide 21 L (22-30) mmol/L BUN 30 H (9-20) mg/dL Creatinine 0.81 (0.66-1.25) mg/dL Glucose 95 (74-99) mg/dL Calcium 10.1 (8.4-10.2) mg/dL AST 72 H (17-59) U/L ALT 69 H (4-49) U/L Alkaline Phosphatase 97 (38-126) U/L Total Protein 7.2 (6.3-8.2) g/dL Albumin 4.9 (3.5-5.0) g/dL Current Medications Generic Name Dose Route Start Last Admin Trade Name Freq PRN Reason Stop Dose Admin Heparin Sodium (Porcine) 0 unit 04/10/24 23:57 04/11/24 05:34 Heparin Sodium 1,000 Un/Ml (10ml Vl) IV 4,000 unit PER PROTOCOL PRN Administration Low PTT Protocol Heparin Sodium/Sodium Chloride 250 mls @ 9.798 mls/hr 04/10/24 23:45 04/11/24 05:32 25,000 unit/ Sodium Chloride IV 12 units/kg/hr .Q24H VIELKA 9.798 mls/hr Titration Protocol 12 UNITS/KG/HR Nitroglycerin 0.4 mg 04/11/24 03:25 Nitroglycerin Sl Tabs 0.4 Mg Tab SUBLINGUAL Q5M PRN Chest Pain Intake and Output 04/10/24 04/11/24 04/11/24 22:59 06:59 14:59 Intake Total 36.375 Balance 36.375 Intake: Intake, IV Titration 36.375 Amount Heparin Sod,Pork in 0.45% 36.375 NaCl 25,000 unit In 0.45 % NaCl 1 250ml.bag @ 12 UNITS/KG/HR 9.798 mls/hr IV .Q24H [facility] Rx#: [id number] Other: Weight 81.647 kg 04/11/24 04:39 04/10/24 21:49
--- NOTE | 2024-04-11 23:33 | HP ---
HISTORY AND PHYSICAL CHIEF COMPLAINT: Chest pain. HISTORY OF PRESENT ILLNESS: This gentleman presented to the emergency room complaining of chest pain and shortness of breath. He was worked up in the emergency room and felt that he probably had an NSTEMI. This was complicated by the fact that he apparently had a positive drug screen[place] [address] and his hemoglobin was 20.2 with hematocrit of 58.7. His liver functions were also slightly elevated with an AST of 72 and an ALT of 69. Alkaline phosphatase was normal. Troponin was elevated. He was being admitted for chest pain and a possible NSTEMI. REVIEW OF SYSTEMS: Otherwise unremarkable. Past medical history, family history, personal and social histories are otherwise unremarkable. He is not allergic to any medication. He has not been in the office since August 2023. At that time, he was using a Ventolin inhaler only. He is a smoker. PHYSICAL EXAMINATION: VITAL SIGNS: Normal. HEAD, EARS, EYES, NOSE, MOUTH, AND THROAT: Normal. CHEST: Clear. HEART: Demonstrates sinus rhythm. ABDOMEN: Soft, nontender. EXTREMITIES: Normal. NEUROLOGIC: He is intact. ASSESSMENT: He is admitted to the hospital with diagnoses of, 1. Chest pain with elevated troponin. 2. Drug abuse. 3. Chronic obstructive pulmonary disease. PLAN: 1. Bedrest. 2. IV fluids. 3. Serial EKGs and enzymes. 4. Cardiology consult. MMRADHA / YUMIKO: [id number] /
--- NOTE | 2024-04-11 23:37 | DS ---
DISCHARGE SUMMARY CHIEF COMPLAINT: Chest pain. HISTORY OF PRESENT ILLNESS AND PHYSICAL EXAMINATION: Details of this man's history and physical can be found in the initial workup. LABORATORY STUDIES: While he is in the hospital, he had laboratory studies, details of which could be found in the laboratory section of his chart. COURSE IN THE HOSPITAL: After admission, he was placed on bedrest, started on intravenous fluids, and had an elevated troponin. He was going to be admitted, referred to Cardiology and then he signed out AMA. FINAL DIAGNOSES: 1. Chest pain. 2. Elevated troponin. 3. Substance abuse. OPERATIONS: None. CONSULTATIONS: None. MMODL / IJN: [id number] /
== END 2024-04-11 09:54 | disposition left against medical advice (07) ==
LOC: EC 21:34 → 3SCARD 04-11 03:26 → INTOOBSV 04-11 03:26 → 3SCARD 04-11 08:58 → UNDODISIN 04-11 09:54
PROVIDERS: ADMIT Family Medicine; ATTEND Family Medicine
DX: R07.89 Other chest pain (principal); R06.02 Shortness of breath; R79.89 Other specified abnormal findings of blood chemistry; F25.0 Schizoaffective disorder, bipolar type; G71.11 Myotonic muscular dystrophy; J44.9 Chronic obstructive pulmonary disease, unspecified; F12.90 Cannabis use, unspecified, uncomplicated; F15.10 Other stimulant abuse, uncomplicated; F17.290 Nicotine dependence, other tobacco product, uncomplicated; Z53.29 Procedure and treatment not carried out because of patient's decision for other reasons
CPT/HCPCS: 96365; 96366; 99291; 36415 ×2; 93005; 85379; 80053; 84484 ×2; 85025 ×2; 85610; 85730; 80306; 71046; 71275; G0378; J1644 ×2; Q9967

== ENCOUNTER 2024-05-18 05:33 | Observation (INO) | payer OTHER ==
[~2024-05-18 05:33] MED LIST: ASPIRIN 81 MG ONE
[2024-05-18] MEDS ORDERED: ASPIRIN 81 MG ONE (06:25)
[2024-05-18] MEDS ORDERED: SODIUM CHLORIDE 0.9% 1,000 ML BAG ONE (06:25)
[2024-05-18] MEDS ORDERED: FAMOTIDINE 20 MG TAB ONE (09:44)
[2024-05-18] MEDS ORDERED: HEPARIN SODIUM,PORCINE 5,000 UNIT/ML 1 ML VIAL ONE ×2 (09:44→20:06)
[2024-05-18] MEDS ORDERED: ACETAMINOPHEN TAB 325 MG TAB ONE (23:48)
[2024-05-19] MEDS ORDERED: FAMOTIDINE 20 MG TAB ONE (09:52)
[2024-05-19] MEDS ORDERED: ACETAMINOPHEN TAB 325 MG TAB ONE (22:01)
[2024-05-20] MEDS ORDERED: FAMOTIDINE 20 MG TAB ONE (09:56)
[2024-05-20] MEDS ORDERED: DOBUTamine DRIP for NUC MED 500 MG/250 ML BAG IV ONE (11:20)
[2024-05-20] MEDS ORDERED: ATROPINE SULFATE 0.1 MG/ML 10ML SYRINGE ONE (11:20)
--- NOTE | 2024-06-12 16:08 | CA ---
Dobutamine Stress Echocardiogram Report gera Higginbotham Age: 33 Gender: M : 1990 Exam Date: 05/20/2024 11:50 Exam Location: [facility] Ordering Physician: Referring Physician: VLADIMIR, Predatory Game Hunter: Freddy Hughes Technologist: Ht (in): 66 Wt (lb): 175 Procedure CPT: Indication: ICD-9 Codes: Rhythm: Patient History: Chest pain, Shortness of breath and palpitations. Cardiac Medications: Medications in past 24 hours: Contrast: Total Dose (mL): Stress Results Protocol: Dobutamine Peak Dose (???g/kg/min): 40 Duration (min:sec): Atropine:(mg) Target HR: 160 Double Product: [id number] Resting HR: 61 Resting BP: 120 / 70 Peak HR: 153 Peak BP: 142 / 63 Max Predicted HR: 188 81 % Max Predicted HR Stress Summary: Echo images to be reviewed on the machine. BP Response: Reason for Termination: Max medication Cardiac Symptoms: Chest pain and short of breath ECG Analysis Resting EKG: Normal sinus rhythm, normal ECG Stress EKG: No abnormal ST/T wave changes with exercise Arrhythmia: Occasional PVCs Echo Analysis Base Echo Analysis: Normal resting echocardiogram. Low Echo Anaylsis: Normal wall thickening and motion Peak Echo Analysis: Normal wall motion augmentation Recovery Echo: No significant wall motion MEASUREMENTS (Male/Female) Normal Values CONCLUSIONS Normal electrocardiographic response to dobutamine infusion No echocardiographic evidence of myocardial ischemia. Normal response to Dobutamine. Dr. Jonathan Doe MD (Electronically Signed) Final Date: 20 May 2024 13:35
--- NOTE | 2024-06-28 12:01 | XR ---
EXAM: XR Chest, 2 Views CLINICAL HISTORY: Chest pain TECHNIQUE: Frontal and lateral views of the chest. COMPARISON: No relevant prior studies available. FINDINGS: Lungs:No consolidation or mass. Pleural space:No effusion. Heart:No cardiomegaly. Bones/joints:No acute findings. IMPRESSION: No acute cardiopulmonary process. Radiologist: Fern Nelson MD Electronically Signed: 05/18/24 02:57 Study ready at 00:09 and initial results transmitted at 02:57 [facility]
--- NOTE | 2024-06-28 12:28 | DS ---
DISCHARGE SUMMARY CHIEF COMPLAINT: Chest pain. HISTORY OF PRESENT ILLNESS AND PHYSICAL EXAMINATION: Details of this man's history and physical can be found in the initial workup. LABORATORY STUDIES: While he was in the hospital, he had laboratory studies, details of which can be found in the laboratory section of his chart. COURSE IN THE HOSPITAL: After admission, he was placed on bedrest, started on intravenous fluids and serial EKGs and enzymes. Seen by Cardiology. Workup and followed and he was cleared for discharge on the and he will follow up in the office in several days. FINAL DIAGNOSIS: Noncardiac chest pain. OPERATIONS: None. CONSULTATION: Cardiology. He is improved. MMODL / IJN: [id number] /
== END 2024-05-20 16:20 | disposition home or self-care (01) ==
LOC: 6NMEDSUR 05:33
PROVIDERS: ADMIT Internal Medicine; ATTEND Internal Medicine
DX: R07.89 Other chest pain (principal); R06.02 Shortness of breath; R42 Dizziness and giddiness; F19.10 Other psychoactive substance abuse, uncomplicated; F17.200 Nicotine dependence, unspecified, uncomplicated; Z82.49 Family history of ischemic heart disease and other diseases of the circulatory system
CPT/HCPCS: 71046; 93005; 93351

== ENCOUNTER 2024-05-21 04:52 | Inpatient (IN) | payer MEDICAID | END 2024-05-24 12:21 | disposition home or self-care (01) | DRG 755 | LOC: 3MHU 04:52 | PROVIDERS: ADMIT Psychiatry & Neurology Psychiatry; ATTEND Psychiatry & Neurology Psychiatry | DX: F43.29 Adjustment disorder with other symptoms (principal); R45.851 Suicidal ideations; F19.10 Other psychoactive substance abuse, uncomplicated; F17.210 Nicotine dependence, cigarettes, uncomplicated; Z91.51 Personal history of suicidal behavior ==

== ENCOUNTER 2025-03-23 12:18 | Emergency (ER) | payer OTHER ==
[2025-03-23] MEDS: ONDANSETRON 4 MG/2 ML VIAL IVP STA (12:46)
--- NOTE | 2025-03-23 12:57 | ED ---
General Adult HPI - General Chief complaint: Psychiatric Symptoms Stated complaint: Mental health eval Time Seen by Provider: 03/23/25 12:20 Source: patient, EMS, RN notes reviewed, old records reviewed Mode of arrival: EMS Limitations: no limitations - History of Present Illness Initial comments: This is a 34-year-old male who presents to the emergency department stating he has been diagnosed with borderline personality disorder as well as bipolar. Patient states he has been out of his medicines for about a year. Patient states he came in today because he was feeling suicidal this morning and he was feeling in his words delusional like he was not really here. Patient states is almost like an antibiotic experience. Patient states he is nauseous but he denies any abdominal pain chest pain or difficulty breathing. Patient denies any fever or chills. Patient is denying suicidal ideations at this time - Related Data Home Medications Medication Instructions Recorded Confirmed No Known Home Medications 04/11/24 04/11/24 Allergies Allergy/AdvReac Type Severity Reaction Status Date / Time coconut AdvReac Rash/Hives Verified 03/23/25 12:40 grape [Raisin] AdvReac Rash/Hives Verified 03/23/25 12:40 Pork/Porcine Containing AdvReac Nausea & Verified 03/23/25 12:40 Products Vomiting [Pork] Review of Systems ROS Statement: Those systems with pertinent positive or pertinent negative responses have been documented in the HPI. ROS Other: All systems not noted in ROS Statement are negative. Past Medical History Past Medical History: No Reported History Additional Past Medical History / Comment(s): borderline personality disorder. MD History of Any Multi-Drug Resistant Organisms: None Reported Past Surgical History: No Surgical Hx Reported Past Anesthesia/Blood Transfusion Reactions: No Reported Reaction Past Psychological History: Bipolar, Depression, Schizoaffective Disorder Smoking Status: Current some day smoker, Vaper Past Alcohol Use History: Rare Past Drug Use History: Marijuana - Past Family History family Family Medical History: No Reported History General Exam - General Exam Comments Initial Comments: GENERAL: Patient is well-developed and well-nourished. Patient is nontoxic and well- hydrated and is in mild distress. ENT: Neck is soft and supple. No significant lymphadenopathy is noted. Oropharynx is clear. Moist mucous membranes. Neck has full range of motion without eliciting any pain. EYES: The sclera were anicteric and conjunctiva were pink and moist. Extraocular movements were intact and pupils were equal round and reactive to light. Eyelids were unremarkable. PULMONARY: Unlabored respirations. Good breath sounds bilaterally. No audible rales rhonchi or wheezing was noted. CARDIOVASCULAR: There is a regular rate and rhythm without any murmurs gallops or rubs. ABDOMEN: Soft and nontender with normal bowel sounds. SKIN: Skin is clear with no lesions or rashes and otherwise unremarkable. NEUROLOGIC: Patient is alert and oriented x3. Cranial nerves II through XII are grossly intact. Motor and sensory are also intact. Normal speech, volume and content. Symmetrical smile. MUSCULOSKELETAL: Normal extremities with adequate strength and full range of motion. No lower extremity swelling or edema. No calf tenderness. LYMPHATICS: No significant lymphadenopathy is noted PSYCHIATRIC: Normal psychiatric evaluation. Limitations: no limitations Course Vital Signs 03/23/25 03/23/25 12:19 14:10 Temperature 99.7 F H Pulse Rate 95 53 L Respiratory 16 17 Rate Blood Pressure 130/83 O2 Sat by Pulse 95 93 L Oximetry Medical Decision Making - Medical Decision Making Was pt. sent in by a medical professional or institution (, PA, PLANT CONTROL AIDE, urgent care, hospital, or [facility]...) When possible be specific @ -No Did you speak to anyone other than the patient for history (EMS, parent, family, police, friend...)? What history was obtained from this source @ -No Did you review nursing and triage notes (agree or disagree)? Why? @ -I reviewed and agree with nursing and triage notes Were old charts reviewed (outside hosp., previous admission, EMS record, old EKG, old radiological studies, urgent care reports/EKG's, [facility] records)? Report findings @ -No old charts were reviewed Differential Diagnosis? @ -Differential Mental Health Depression, anxiety, bipolar, psychosis, schizophrenia, borderline personality, situational depression, adjustment disorder, behavioral disorder, brain tumor, malingering, substance abuse, encephalopathy, medication reaction, dementia, hypothyroidism, degenerative neurologic disorder, lupus.... This is not meant to be all-inclusive list EKG interpreted by me (3pts min.). @ -As above X-rays interpreted by me (1pt min.). @ -None done CT interpreted by me (1pt min.). @ -None done U/S interpreted by me (1pt. min.). @ -None done What testing was considered but not performed or refused? (CT, X-rays, U/S, labs)? Why? @ -None What meds were considered but not given or refused? Why? @ -None Did you discuss the management of the patient with other professionals (neal martisn i.e. , PA, PLANT CONTROL AIDE, lab, RT, psych nurse, social work manager, charge attendant, teacher, first officer, block and case maker)? Give summary @ -EPS nurse evaluated the patient spoke with the psychiatrist determined that the patient did not need to be here a safety plan was given to the patient the patient was in agreement. Patient stated that he would return if he was feeling suicidal at all. Was smoking cessation discussed for >3mins.? @ -No Was critical care preformed (if so, how long)? @ -No Were there social determinants of health that impacted care today? How? (Homelessness, low income, unemployed, alcoholism, drug addiction, transportation, low edu. Level, literacy, decrease access to med. care, longterm, rehab)? @ -No Was there de-escalation of care discussed even if they declined (Discuss DNR or withdrawal of care, Hospice)? DNR status @ -No What co-morbidities impacted this encounter? (DM, HTN, Smoking, COPD, CAD, Cancer, CVA, ARF, Chemo, Hep., AIDS, mental health diagnosis, sleep apnea, mor bid obesity)? @ -None Was patient admitted / discharged? Hospital course, mention meds given and route, prescriptions, significant lab abnormalities, going to OR and other pertinent info. @ -Patient denies suicidal ideations throughout his ED course and stated that he would rather follow-up as an outpatient and those arrangements were made through EPS Undiagnosed new problem with uncertain prognosis? @ -No Drug Therapy requiring intensive monitoring for toxicity (Heparin, Nitro, Insulin, Cardizem)? @ -No Were any procedures done? @ -No Diagnosis/symptom? @ -Bipolar Acute, or Chronic, or Acute on Chronic? @ -Chronic Uncomplicated (without systemic symptoms) or Complicated (systemic symptoms)? @ -Uncomplicated Side effects of treatment? @ -No Exacerbation, Progression, or Severe Exacerbation? @ -No Poses a threat to life or bodily function? How? (Chest pain, [place], AL, pneumonia, PE, COPD, DKA, ARF, appy, cholecystitis, CVA, Diverticulitis, Homicidal, Suicidal, threat to staff... and all critical care pts) @ -No - Lab Data Lab Results 03/23/25 Range/Units 13:06 Urine Opiates Screen Not Detected (NotDetected) Ur Oxycodone Screen Not Detected (NotDetected) Urine Methadone Screen Not Detected (NotDetected) Ur Barbiturates Screen Not Detected (NotDetected) U Tricyclic Antidepress Not Detected (NotDetected) Ur Phencyclidine Scrn Not Detected (NotDetected) Ur Amphetamines Screen Not Detected (NotDetected) U Methamphetamines Scrn Not Detected (NotDetected) U Benzodiazepines Scrn Not Detected (NotDetected) Urine Cocaine Screen Not Detected (NotDetected) U Marijuana (THC) Screen Detected H (NotDetected) Disposition Clinical Impression: Personality disorder, Bipolar disorder Disposition: HOME SELF-CARE Condition: Good Is patient prescribed a controlled substance at d/c from ED?: No Referrals: Jatin Bush MD [Primary Care Provider] - 1-2 days Time of Disposition: 15:06
[2025-03-23 13:31] LABS: Amphetamine Screen,Urine Not Detected (NotDetected); Barbiturate Screen,Urine Not Detected (NotDetected); Benzodiazepines Screen,Urine Not Detected (NotDetected); Cocaine Screen,Urine Not Detected (NotDetected); Methadone Screen, Urine Not Detected (NotDetected); Opiate Screen,Urine Not Detected (NotDetected); Oxycodone Screen, Urine Not Detected (NotDetected); Phencyclidine Screen,Urine Not Detected (NotDetected); Tricyclic Antidepressant,Urine Not Detected (NotDetected); Urn Cannabinoid Scrn Detected (NotDetected)
[2025-03-23 15:18] VITALS: BP 130/58; PULSE 74; RESP 15; TEMP 98
== END 2025-03-23 15:17 | disposition home or self-care (01) ==
LOC: EC 12:18
DX: F60.3 Borderline personality disorder (principal); F17.290 Nicotine dependence, other tobacco product, uncomplicated; Z91.018 Allergy to other foods; Z88.8 Allergy status to other drugs, medicaments and biological substances
CPT/HCPCS: 82075; 80306; 99284; 96374; J2405